=== PATIENT | female | born 1945 | race Caucasian/White ===

== ENCOUNTER → 2019-06-11 09:33 | Outpatient (BNVA) | payer MEDICARE, MEDICAID, SELFPAY | PROVIDERS: Family Provider Family Medicine; PCP Family Medicine; Visit Provider Nurse Practitioner Psychiatric/Mental Health | DX: F33.2 Major depressive disorder, recurrent severe without psychotic features (principal); F41.0 Panic disorder [episodic paroxysmal anxiety]; F41.9 Anxiety disorder, unspecified; F43.21 Adjustment disorder with depressed mood | CPT/HCPCS: 99214 ==

== ENCOUNTER → 2019-07-03 11:34 | Outpatient (BNVA) | payer MEDICARE, MEDICAID, SELFPAY | PROVIDERS: Family Provider Family Medicine; PCP Family Medicine; Visit Provider Family Medicine | DX: F41.8 Other specified anxiety disorders (principal); G47.00 Insomnia, unspecified; F41.9 Anxiety disorder, unspecified; E78.5 Hyperlipidemia, unspecified; E03.9 Hypothyroidism, unspecified; M19.90 Unspecified osteoarthritis, unspecified site; F32.9 Major depressive disorder, single episode, unspecified; I10 Essential (primary) hypertension; E11.65 Type 2 diabetes mellitus with hyperglycemia; E78.2 Mixed hyperlipidemia | CPT/HCPCS: 80053; 80061; 83036; 84443; 85025 ==

== ENCOUNTER → 2019-10-02 11:10 | Outpatient (BNVA) | payer OTHER, SELFPAY | PROVIDERS: Family Provider Family Medicine; PCP Family Medicine; Visit Provider Family Medicine | DX: F32.9 Major depressive disorder, single episode, unspecified (principal); F41.9 Anxiety disorder, unspecified; E11.65 Type 2 diabetes mellitus with hyperglycemia; E78.2 Mixed hyperlipidemia; I10 Essential (primary) hypertension; E03.9 Hypothyroidism, unspecified | CPT/HCPCS: 80053; 80061; 83036; 84443; 85025 ==

== ENCOUNTER 2019-11-04 18:49 | Emergency (ER) | payer MEDICARE, MEDICAID, SELFPAY ==
[2019-11-04 18:54] VITALS: BP 115/88; PULSE 72; RESP 16; TEMP 36.7; O2SAT 94; BMI 37.8
[2019-11-04 18:59] VITALS: BP 126/80; PULSE 72; RESP 16; TEMP 36.9; O2SAT 93
--- NOTE | 2019-11-04 19:00 | W.ED.ANXIETY ---
HPI - Anxiety General: Chief Complaint: Anxiety Stated Complaint: ANXIETY/DEPRESSION Time Seen by Provider: 11/04/19 18:53 Source: patient and EMS Mode of arrival: EMS Limitations: no limitations History of Present Illness: HPI narrative: 74-year-old female brought in by EMS for depression. Patient had called her PCP wanting a refill for her anxiety medicine states that she is crying over the phone as she gets depressed time to time because of her son and her passing away. EMS was called to check on her she is denied suicidality to EMS. She denies being suicidal or homicidal to me and he states that she gets depressed at times and this is been normal for. She states she takes Wellbutrin and it helps her pretty well. She states that they did refill her anxiety medicine today. Associated symptoms: Deny chest pain, chills, fever(s), headache(s), nausea or vomiting Review of Systems Const: Denies: fever(s), chills, body aches or change in appetite Eyes: Denies: blurry vision or eye discomfort ENMT: Denies: throat pain or dental pain Card: Denies: chest pain Resp: Denies: dyspnea GI: Denies: abdominal pain, nausea, vomiting or diarrhea : Denies: dysuria Musc: Denies: neck pain or back pain Skin/Breast: Denies: rash Neuro: Denies: headache(s) Psych: Reports: depression Josh/Lymph: Denies: easy bruising All/Imm: Denies: urticaria PFSH ED PFSH: Medical History Aortic aneurysm Bipolar depression Chronic low back pain Chronic pain Diabetes GERD (gastroesophageal reflux disease) HTN (hypertension) Hyperlipidemia Hypersomnia Hypothyroidism Insomnia Neuropathy Obesity Panic anxiety syndrome Pulmonary embolism Vitamin D deficiency Surgical History H/O colonoscopy 2018 H/O lumpectomy 2001 History of cholecystectomy History of esophagogastroduodenoscopy 2018 Hx of hysterectomy vaginal 1970 Hx of tonsillectomy 1965 Family History Other CAD (coronary artery disease) Cancer Diabetes Stroke Social History Smoking and tobacco status: never smoked Second hand smoke exposure: No Smoking risk assessment/counseling performed?: No Alcohol intake: never Desire information about alcohol rehabilitation?: No Counseling given: No Desire information about substance/drug rehabilitation?: No Counseling given: No Lives independently: Yes Marital status: / Current occupational status: retired Current gender identity: Female Physical Exam Const: COMMON NORMALS: no acute distress, patient oriented x3 and healthy appearing HENMT: COMMON NORMALS: normocephalic and atraumatic HEAD & SCALP: normocephalic and atraumatic Eye: COMMON NORMALS: Equal, round and reactive pupils present and EOMs intact bilaterally PUPIL: Yes Equal, round and reactive pupils present Neck/C-Spine: COMMON NORMALS: full ROM and supple Chest: COMMONS NORMALS: normal inspection of the chest and normal palpation of entire chest wall Resp: COMMON NORMALS: normal respiratory effort, No retractions, No use of accessory muscles and clear to auscultation bilaterally AUSCULTATION: clear to auscultation bilaterally Cardio: COMMON NORMALS: regular rate, regular rhythm and No murmurs present (Cardio) RATE: regular rate RHYTHM: regular rhythm GI: COMMON NORMALS: Normal to inspection, nondistended, normoactive bowel sounds present, Soft to palpation, non-tender and no masses PALPATION: Yes Soft to palpation Extremity: COMMON NORMALS: normal to inspection and full ROM Neuro: COMMON NORMALS: patient oriented x3, moves all extremities and no focal motor deficits Psych: COMMON NORMALS: mental status grossly normal, Normal thought process present and cooperative MOOD & AFFECT: Yes depressed mood THOUGHT PROCESS: Normal thought process present THOUGHT CONTENT: No Suicidality present and No Homicidality present Skin: COMMON NORMALS: no rashes or lesions noted and no wounds GENERAL SKIN EXAM: no rashes or lesions noted Course Vital Signs: Vital signs: Vital Signs Temperature 98.3 F 11/04/19 20:31 Pulse Rate 76 11/04/19 20:31 Respiratory Rate 16 11/04/19 20:31 Blood Pressure 124/82 11/04/19 20:31 Pulse Oximetry 95 11/04/19 20:31 MDM - Anxiety MDM Narrative: Medical decision making narrative: Patient presents here with anxiety along with depression. Patient adamantly denies any suicidality or homicidality. She denied that to EMS as well. Patient given Ativan and she is requesting discharge. She has no reasons to 96-hour hold and is stable for discharge. She is to follow-up with her primary care doctor in 3 to 5 days return to ER if worsening. Discharge Plan Discharge Patient Disposition: Home, Self-Care Clinical Impression: Depression Qualifiers: Depression Type: unspecified Qualified Code(s): F32.9 - Major depressive disorder, single episode, unspecified Condition: Stable Prescriptions: No Action metoprolol tartrate 25 mg tablet 25 mg PO BID RF: 0 hydrochlorothiazide 12.5 mg tablet 12.5 mg PO QAM PRN (Reason: edema) RF: 0 Victoza 3-[place] 0.6 mg/0.1 mL (18 mg/3 mL) pen injector 1.8 mg SUBCUT DAILY 30 Days Qty: 9 RF: 3 celecoxib [Celebrex] 200 mg capsule 200 mg PO DAILY Qty: 30 RF: 3 escitalopram oxalate [Lexapro] 10 mg tablet 10 mg PO DAILY Qty: 30 RF: 2 rosuvastatin [Crestor] 10 mg tablet 10 mg PO ONCE Qty: 30 RF: 3 (DME) Accu-Chek SmartView Test Strip Strip See Rx Instructions .ROUTE .MEDSUPPLY Qty: 100 RF: 6 losartan 25 mg tablet 25 mg PO DAILY Qty: 30 RF: 4 gabapentin 400 mg capsule 400 mg PO TID Qty: 90 RF: 1 esomeprazole magnesium [Nexium 24HR] 20 mg capsule,delayed release(DR/EC) 20 mg PO ONCE Qty: 90 RF: 0 metformin 1,000 mg tablet See Rx Instructions .ROUTE .COMPLEX Qty: 60 RF: 2 amlodipine 5 mg tablet 5 mg PO DAILY Qty: 90 RF: 0 bupropion HCl [Wellbutrin XL] 300 mg tablet extended release 24 hr 300 mg PO QAM Qty: 30 RF: 3 trazodone 100 mg tablet 100 mg PO .QHS Qty: 30 RF: 3 cholecalciferol (vitamin D3) 25 mcg (1,000 unit) tablet 25 mcg PO DAILY Qty: 90 RF: 0 levothyroxine 100 mcg tablet 100 mcg PO DAILY Qty: 90 RF: 0 clonazepam 1 mg tablet 1 mg PO TID Qty: 90 RF: 0 Discharge Orders: Discharge Order (Routine); Ordered 06/15/20 Ordered By: Florencia Briggs Referrals: Kristy Topete MD [Primary Care Provider] - 1-3 days Discharge Diet: Advance as tolerated Discharge Activity: Resume usual activity Patient Instructions: Depression (ED) Coding Level of Care Code ED Weight And Test Bar Clerk for Chg Fwd Exam Comprehensive
[2019-11-04] MEDS: LORazepam 1 mg Tablet PO (19:13)
[2019-11-04 20:31] VITALS: BP 124/82; PULSE 76; RESP 16; TEMP 36.8; O2SAT 95
== END 2019-11-04 20:43 | disposition home or self-care (01) ==
PROVIDERS: Emergency Provider Emergency Medicine; PCP Family Medicine
DX: F32.9 Major depressive disorder, single episode, unspecified (principal); E11.40 Type 2 diabetes mellitus with diabetic neuropathy, unspecified; I10 Essential (primary) hypertension; E78.5 Hyperlipidemia, unspecified; Z79.84 Long term (current) use of oral hypoglycemic drugs
CPT/HCPCS: 12345; 99281; 99283

== ENCOUNTER → 2019-12-03 08:14 | Outpatient (BNVA) | payer MEDICARE, MEDICAID, SELFPAY | PROVIDERS: PCP Family Medicine; Visit Provider Nurse Practitioner Psychiatric/Mental Health | DX: F41.9 Anxiety disorder, unspecified (principal); F41.8 Other specified anxiety disorders; F41.0 Panic disorder [episodic paroxysmal anxiety]; F43.21 Adjustment disorder with depressed mood; F32.9 Major depressive disorder, single episode, unspecified; Z79.899 Other long term (current) drug therapy | CPT/HCPCS: 99213 ==

== ENCOUNTER → 2019-12-06 09:08 | Outpatient (BNVA) | payer MEDICARE, MEDICAID, SELFPAY | PROVIDERS: PCP Family Medicine; Visit Provider Nurse Practitioner Psychiatric/Mental Health | DX: Z79.899 Other long term (current) drug therapy (principal) | CPT/HCPCS: 80053 ==

== ENCOUNTER → 2019-12-31 09:16 | Outpatient (BNVA) | payer MEDICARE, MEDICAID, SELFPAY | PROVIDERS: PCP Family Medicine; Visit Provider Nurse Practitioner Psychiatric/Mental Health | DX: F41.0 Panic disorder [episodic paroxysmal anxiety] (principal); F33.9 Major depressive disorder, recurrent, unspecified | CPT/HCPCS: G0463 ==

== ENCOUNTER → 2020-02-25 08:07 | Outpatient (BNVA) | payer MEDICARE, MEDICAID, SELFPAY | PROVIDERS: PCP Family Medicine; Visit Provider Nurse Practitioner Psychiatric/Mental Health | DX: F41.9 Anxiety disorder, unspecified (principal); F41.8 Other specified anxiety disorders; G47.00 Insomnia, unspecified; F43.21 Adjustment disorder with depressed mood; F41.0 Panic disorder [episodic paroxysmal anxiety]; F32.9 Major depressive disorder, single episode, unspecified | CPT/HCPCS: 99212 ==

== ENCOUNTER → 2020-03-30 07:58 | Outpatient (BNVA) | payer MEDICARE, MEDICAID, SELFPAY | PROVIDERS: PCP Family Medicine; Visit Provider Nurse Practitioner Psychiatric/Mental Health | DX: F41.9 Anxiety disorder, unspecified (principal); F41.8 Other specified anxiety disorders; G47.00 Insomnia, unspecified; F43.21 Adjustment disorder with depressed mood | CPT/HCPCS: G0463 ==

== ENCOUNTER → 2020-05-25 07:58 | Outpatient (BNVA) | payer MEDICARE, MEDICAID, SELFPAY | PROVIDERS: PCP Family Medicine; Visit Provider Nurse Practitioner Psychiatric/Mental Health | DX: F41.8 Other specified anxiety disorders (principal); F43.21 Adjustment disorder with depressed mood; F41.0 Panic disorder [episodic paroxysmal anxiety]; F32.9 Major depressive disorder, single episode, unspecified; F41.1 Generalized anxiety disorder; F43.12 Post-traumatic stress disorder, chronic | CPT/HCPCS: 99212 ==

== ENCOUNTER → 2020-07-15 15:11 | Outpatient (BNVA) | payer MEDICARE, MEDICAID, SELFPAY | PROVIDERS: PCP Family Medicine; Visit Provider Family Medicine | DX: E03.9 Hypothyroidism, unspecified (principal); E11.65 Type 2 diabetes mellitus with hyperglycemia; E78.2 Mixed hyperlipidemia; I10 Essential (primary) hypertension; M25.562 Pain in left knee; M25.511 Pain in right shoulder; M19.90 Unspecified osteoarthritis, unspecified site; G89.29 Other chronic pain; Z68.41 Body mass index [BMI] 40.0-44.9, adult | CPT/HCPCS: 73030; 73562; 80053; 80061; 83036; 84443; 85025 ==

== ENCOUNTER → 2020-08-20 08:37 | Outpatient (BNVA) | payer MEDICARE, MEDICAID, SELFPAY | PROVIDERS: PCP Family Medicine; Visit Provider Nurse Practitioner Psychiatric/Mental Health | DX: F41.8 Other specified anxiety disorders (principal); F43.21 Adjustment disorder with depressed mood; F41.0 Panic disorder [episodic paroxysmal anxiety]; F32.9 Major depressive disorder, single episode, unspecified | CPT/HCPCS: 99213 ==

== ENCOUNTER → 2020-10-20 09:19 | Outpatient (BNVA) | payer MEDICARE, MEDICAID, SELFPAY | PROVIDERS: PCP Family Medicine; Visit Provider Family Medicine | DX: E03.9 Hypothyroidism, unspecified (principal); E11.9 Type 2 diabetes mellitus without complications; E78.2 Mixed hyperlipidemia; I10 Essential (primary) hypertension | CPT/HCPCS: 80053; 80061; 83036; 84443; 85025 ==

== ENCOUNTER → 2020-11-12 07:38 | Outpatient (BNVA) | payer MEDICARE, MEDICAID, SELFPAY | PROVIDERS: PCP Family Medicine; Visit Provider Nurse Practitioner Psychiatric/Mental Health | DX: F41.8 Other specified anxiety disorders (principal); F43.21 Adjustment disorder with depressed mood; F41.0 Panic disorder [episodic paroxysmal anxiety]; F32.9 Major depressive disorder, single episode, unspecified | CPT/HCPCS: 99213 ==

== ENCOUNTER → 2021-02-04 08:32 | Outpatient (BNVA) | payer MEDICARE, MEDICAID, SELFPAY | PROVIDERS: PCP Family Medicine; Visit Provider Nurse Practitioner Psychiatric/Mental Health | DX: F41.8 Other specified anxiety disorders (principal); F43.21 Adjustment disorder with depressed mood; F41.0 Panic disorder [episodic paroxysmal anxiety]; F32.9 Major depressive disorder, single episode, unspecified; I10 Essential (primary) hypertension | CPT/HCPCS: 99213 ==

== ENCOUNTER → 2021-04-29 08:21 | Outpatient (BNVA) | payer MEDICARE, MEDICAID, SELFPAY | PROVIDERS: PCP Family Medicine; Visit Provider Nurse Practitioner Psychiatric/Mental Health | DX: F43.21 Adjustment disorder with depressed mood (principal); F41.8 Other specified anxiety disorders; F41.0 Panic disorder [episodic paroxysmal anxiety]; F32.9 Major depressive disorder, single episode, unspecified | CPT/HCPCS: 99214 ==

== ENCOUNTER → 2021-07-27 11:59 | Outpatient (BNVA) | payer MEDICARE, MEDICAID, SELFPAY | PROVIDERS: PCP Family Medicine; Visit Provider Family Medicine | DX: E03.9 Hypothyroidism, unspecified (principal); E11.65 Type 2 diabetes mellitus with hyperglycemia; E55.9 Vitamin D deficiency, unspecified; E78.2 Mixed hyperlipidemia; I10 Essential (primary) hypertension; E78.5 Hyperlipidemia, unspecified | CPT/HCPCS: 80053; 80061; 82306; 83036; 84443; 85025 ==

== ENCOUNTER → 2021-08-05 11:12 | Outpatient (BNVA) | payer MEDICARE, MEDICAID, SELFPAY | PROVIDERS: PCP Family Medicine; Visit Provider Nurse Practitioner Psychiatric/Mental Health | DX: F43.21 Adjustment disorder with depressed mood (principal); F41.0 Panic disorder [episodic paroxysmal anxiety]; F32.9 Major depressive disorder, single episode, unspecified; F41.8 Other specified anxiety disorders | CPT/HCPCS: 99214 ==

== ENCOUNTER → 2021-09-29 11:11 | Outpatient (BNVA) | payer MEDICARE, MEDICAID, SELFPAY | PROVIDERS: PCP Family Medicine; Visit Provider Family Medicine | DX: M54.16 Radiculopathy, lumbar region (principal); M19.011 Primary osteoarthritis, right shoulder; M17.0 Bilateral primary osteoarthritis of knee; G89.29 Other chronic pain; G62.9 Polyneuropathy, unspecified; E03.9 Hypothyroidism, unspecified; E11.65 Type 2 diabetes mellitus with hyperglycemia; E78.2 Mixed hyperlipidemia; G47.00 Insomnia, unspecified; I71.2 Thoracic aortic aneurysm, without rupture; K21.9 Gastro-esophageal reflux disease without esophagitis; R01.1 Cardiac murmur, unspecified; Z76.89 Persons encountering health services in other specified circumstances | CPT/HCPCS: 80053; 84439; 84443; 85025; 85651 ==

== ENCOUNTER → 2021-10-28 11:16 | Outpatient (BNVA) | payer MEDICARE, MEDICAID, SELFPAY | PROVIDERS: PCP Family Medicine; Visit Provider Nurse Practitioner Psychiatric/Mental Health | DX: F41.0 Panic disorder [episodic paroxysmal anxiety] (principal); F33.1 Major depressive disorder, recurrent, moderate; F41.8 Other specified anxiety disorders | CPT/HCPCS: 99214 ==

== ENCOUNTER → 2022-02-01 11:28 | Outpatient (BNVA) | payer MEDICARE, MEDICAID, SELFPAY | PROVIDERS: PCP Family Medicine; Visit Provider Family Medicine | DX: R51.9 Headache, unspecified (principal); G89.29 Other chronic pain; I10 Essential (primary) hypertension; G62.9 Polyneuropathy, unspecified; R01.1 Cardiac murmur, unspecified; I71.2 Thoracic aortic aneurysm, without rupture; M54.16 Radiculopathy, lumbar region; E78.5 Hyperlipidemia, unspecified; E03.9 Hypothyroidism, unspecified; M17.0 Bilateral primary osteoarthritis of knee | CPT/HCPCS: 80053; 80061; 82306; 82607; 82746; 83036; 84439; 84443; 85025; 85651; 86140 ==

== ENCOUNTER 2022-04-07 14:53 | Outpatient (CLI) | payer MEDICARE, MEDICAID, SELFPAY ==
--- NOTE | 2022-04-07 15:00 | USCV_ITS ---
Mena Farley Age: 77 Gender: F : 1945 Exam Date: 04/07/2022 15:36 Ordering Phys: Xavi Ordonez DO Technologist: YOLY Exam Location: [facility] [place] Indication: MURMUR BP: 122 / 86 HR: 54 Rhythm: Sinus Technical Quality: Adequate MEASUREMENTS (Male / Female) Normal Values 2D ECHO LVOT Diameter 2.0 cm LV Ejection Fraction MOD 2C 70.5 % LV Ejection Fraction 2C AL 72.4 % LA Diameter 3.9 cm LA Width 3.7 cm LA Height 5.4 cm RA Width 3.4 cm RA Height 5.3 cm Aorta at Sinotubular Diameter 2.8 cm IVC Diameter 1.9 cm M-MODE Aortic Annulus Diameter 2.3 cm LA Ao Ratio MM 1.5 MV E Point Septal Separation 0.3 cm DOPPLER AV Peak Velocity 364.0 cm/s LVOT Peak Velocity 88.0 cm/s AV Area Cont Eq vti 0.7 cm squared AV Area Cont Eq pk 0.8 cm squared MV Peak Velocity 97.0 cm/s MV Area PHT 2.4 cm squared Mitral E to A Ratio 0.9 MV E' Velocity 45.0 cm/s Mitral E to MV E' Ratio 13.1 Mitral E to LV E' Lateral Ratio 13.8 Mitral E to LV E' Septal Ratio 12.7 TR Peak Velocity 221.3 cm/s TR Peak Gradient 19.6 mmHg TR Mean Velocity 190.9 cm/s TR Mean Gradient 15.6 mmHg TR Velocity Time Integral 90.9 cm TV Peak E Velocity 41.0 cm/s Right Atrial Pressure 3.0 mmHg Pulmonary Artery Systolic Pressu 22.6 mmHg PV Peak Velocity 90.0 cm/s RV Acceleration Time 0.1 s RV Ejection Time 0.3 s RV AcT/ET 0.4 FINDINGS Left Ventricle Normal left ventricular size and systolic function, EF 70 %. Mild left ventricular hypertrophy. No regional wall motion abnormalities. Grade I/IV diastolic dysfunction (abnormal relaxation filling pattern), normal to mildly elevated filling pressures. Right Ventricle The right ventricle is normal in size and function. Right Atrium The right atrium is normal in size. Left Atrium Mildly increased left atrial size. Mitral Valve No gross abnormalities noted.trace mitral valve regurgitation. Aortic Valve Thickened aortic valve. Moderate aortic valve calcification. Trace aortic valve regurgitation. Severe low gradient aortic valve stenosis, mean gradient 29 mmHg, KISHA 0.66 cm squared. Peak velocity of 3.71 m/s and a peak gradient of 56.5 mmHg.trace to mild aortic valve regurgitation. Tricuspid Valve [id number] tricuspid valve regurgitation. Pulmonic Valve Pulmonic valve not well visualized. Pericardium Normal pericardium without effusion. Aorta Normal aortic annulus size. IVC The inferior vena cava appears normal. CONCLUSIONS Normal left ventricular size and systolic function, EF 70 %. Mild left ventricular hypertrophy. No regional wall motion abnormalities. Grade I/IV diastolic dysfunction (abnormal relaxation filling pattern), normal to mildly elevated filling pressures. Thickened aortic valve. Moderate aortic valve calcification. Trace aortic valve regurgitation. Severe low gradient aortic valve stenosis, mean gradient 29 mmHg, KISHA 0.66 cm squared. Peak velocity of 3.71 m/s and a peak gradient of 56.5 mmHg.trace to mild aortic valve regurgitation. Mildly increased left atrial size. Trace mitral valve regurgitation. [id number] tricuspid valve regurgitation. Estimated pulmonary artery peak systolic pressure of 23 mmHg. There is no pericardial effusion. There are no intracardiac masses. Compared to the study from 12/31/2018, there is worsening of the aortic valve stenosis Dr Courtney Gonzales MD [facility] (Electronically Signed) Final Date: 07 April 2022 22:24 S
== END 2022-04-07 14:54 | disposition home or self-care (01) ==
LOC: RAD 14:53
PROVIDERS: PCP Family Medicine; Visit Provider Family Medicine
DX: R01.1 Cardiac murmur, unspecified (principal); I71.20 Thoracic aortic aneurysm, without rupture, unspecified; I08.3 Combined rheumatic disorders of mitral, aortic and tricuspid valves
CPT/HCPCS: 93306

== ENCOUNTER 2022-04-23 10:00 | Emergency (ER) | payer MEDICARE, MEDICAID, SELFPAY ==
[2022-04-23 10:05] VITALS: BP 106/66; PULSE 67; RESP 18; TEMP 36.4; O2SAT 96
[2022-04-23 11:30] LABS: Basophils % 0.3 %; Eosinophils # 0.1 10^3/uL (0.0-0.8); Eosinophils % 0.5 %; Hematocrit 43.5 % (37.0-47.0); Lymphocytes # 1.9 10^3/uL (0.8-4.8); Lymphocytes % 15.1 %; Mean Corpuscular HGB Conc 32.2 g/dL (30.0-36.0); Mean Corpuscular Hemoglobin 30.4 pg (28.0-34.0); Mean Corpuscular Volume 94.6 fl (81-99); Monocytes # 0.7 10^3/uL (0.2-0.9); Monocytes % 5.9 %; Neutrophils # 9.63 10^3/uL (1.8-7.7); Neutrophils % 77.7 %; Nucleated Red Blood Cells % 0 %; Platelet Count 317 10^3/cmm (130-400); White Blood Count 12.4 10^3/uL (4.0-10.0)
[2022-04-23 11:50] LABS: Alanine Aminotransferase 37 U/L (0-33); Albumin Level 4.1 g/dL (3.5-5.2); Alkaline Phosphatase 94 U/L (35-105); Anion Gap 23.4 (5-19); Aspartate Amino Transferase 16 U/L (0-32); Blood Urea Nitrogen 20 mg/dL (8-23); Calcium 9.2 mg/dL (8.5-10.5); Carbon Dioxide 18 mmol/L (22-29); Chloride 88 mmol/L (98-107); Globulin 2.5 g/dL (1.3-4.6); Glucose 104 mg/dL (65-115); Lipase 25 U/L (13-60); Osmolality Calculated 265 mOsm/kg (285-295); Potassium 3.4 mmol/L (3.5-5.1); Sodium 126 mmol/L (136-145); Total Bilirubin 0.4 mg/dL (0.15-1.2); Total Protein 6.6 g/dL (6.6-8.7)
--- NOTE | 2022-04-23 12:21 | W.ED.ABDPA2 ---
HPI - Abdominal Pain General: Chief Complaint: Abdominal Pain Stated Complaint: can't eat or drink Time Seen by Provider: 04/23/22 12:16 Source: patient Mode of arrival: ambulatory History of Present Illness: 77-year-old female presents emergency room complaining of left lower quadrant abdominal pain that she began 5 days ago she has had a lot of loose stool with it no hematochezia melena hematemesis coffee-ground emesis no dysuria urgency or frequency. She not had this difficulty before it localizes very well to the left lower quadrant. MD elicited complaint: abdominal pain Onset (ago): day(s) (5) Pain Consistency: constant Location: LLQ Severity: moderate Quality: cramping Radiation: none Migration to: no migration Exacerbating factors: nothing Relieving factors: other (Positioning on her right side) Associated Symptoms: Reports bloating, change in bowel habits, change in stool character and diarrhea; Denies belching, chills, coffee ground emesis, constipation, GI cramping, dyspepsia, dysuria, excessive flatus, fever(s), heartburn, hematochezia, hematuria, hematemesis, fecal incontinence, loose stools, melena, nausea, poor appetite, syncope and vomiting Review of Systems Const: Denies: fever(s) or chills Card: Denies: chest pain, palpitations, irregular heart rhythm or syncope Resp: Denies: dyspnea, productive cough or non-productive cough GI: Reports: abdominal pain, diarrhea, bloating, change in bowel habits and change in stool character; Denies: nausea, vomiting, hematemesis, coffee ground emesis, heartburn, constipation, GI cramping, belching, excessive flatus, fecal incontinence, hematochezia or melena : Denies: dysuria or hematuria Skin/Breast: Denies: rash or pruritus PFSH ED PFSH: Medical History Aortic aneurysm Bipolar depression Chronic low back pain Chronic pain Diabetes GERD (gastroesophageal reflux disease) HTN (hypertension) Hyperlipidemia Hypersomnia Hypothyroidism Insomnia Neuropathy Obesity Panic anxiety syndrome Psychiatric care Pulmonary embolism Vitamin D deficiency Surgical History H/O colonoscopy 2018 H/O lumpectomy 2001 History of cholecystectomy History of esophagogastroduodenoscopy 2018 Hx of hysterectomy vaginal 1970 Hx of tonsillectomy 1965 Family History Other CAD (coronary artery disease) Cancer Diabetes Stroke Social History Smoking and tobacco status: never smoked Second hand smoke exposure: No Smoking risk assessment/counseling performed?: No Alcohol intake: never Desire information about alcohol rehabilitation?: No Counseling given: No Desire information about substance/drug rehabilitation?: No Counseling given: No Lives independently: Yes Marital status: / Current occupational status: retired Current gender identity: Female Female Reproductive History: Spontaneous abortions: No Physical Exam Const: GENERAL APPEARANCE: cooperative and comfortable ORIENTATION/CONSCIOUSNESS: Yes awake, Yes oriented to person, Yes oriented to place and Yes oriented to time HENMT: COMMON NORMALS: normocephalic, atraumatic and hearing grossly normal bilaterally HEAD & SCALP: normocephalic and atraumatic Resp: COMMON NORMALS: normal respiratory effort, No retractions, No use of accessory muscles and clear to auscultation bilaterally AUSCULTATION: clear to auscultation bilaterally Cardio: COMMON NORMALS: regular rate, regular rhythm and No murmurs present (Cardio) RATE: regular rate RHYTHM: regular rhythm GI: COMMON NORMALS: No hepatosplenomegaly present AUSCULTATION: Yes normoactive bowel sounds PALPATION: Yes Tenderness to palpation present (GI) Details: LLQ, No Guarding due to palpation present (GI) and Yes No hepatosplenomegaly present Extremity: COMMON NORMALS: normal to inspection, capillary refill normal, no clubbing, cyanosis or edema, no calf tenderness and no pedal edema Neuro: SENSORIUM/ORIENTATION: Yes oriented to person, Yes oriented to place and Yes oriented to time Skin: COMMON NORMALS: no rashes or lesions noted GENERAL SKIN EXAM: no rashes or lesions noted Course Vital Signs: Vital signs: Vital Signs Temperature 97.6 F 04/23/22 10:05 Pulse Rate 67 04/23/22 10:05 Respiratory Rate 15 04/23/22 13:26 Blood Pressure 145/63 04/23/22 13:26 Pulse Oximetry 96 04/23/22 10:05 MDM - Abdominal Pain Medical Decision Making Nonacute abdomen no peritoneal signs. Based on her presentation and her exam with some mild tenderness in the left lower quadrant do think she has diverticulitis we will treat her as such start the Cipro and Flagyl. Ondansetron for nausea vomiting patient was given fluids discharge home and follow-up with primary care. Medical Records I reviewed the patient's medical records. Lab Data I reviewed the patient's lab results. 04/23/22 11:15 04/23/22 11:15 Labs/Radiology: Laboratory Results WBC 12.4 10^3/uL (4.0-10.0) H 04/23/22 11:15 RBC 4.60 10^6/uL (4.1-5.3) 04/23/22 11:15 Hgb 14.0 g/dL (11.5-15.3) 04/23/22 11:15 Hct 43.5 % (37.0-47.0) 04/23/22 11:15 MCV 94.6 fl (81-99) 04/23/22 11:15 MCH 30.4 pg (28.0-34.0) 04/23/22 11:15 MCHC 32.2 g/dL (30.0-36.0) 04/23/22 11:15 RDW 13.0 % (12.1-15.1) 04/23/22 11:15 Plt Count 317 10^3/cmm (130-400) 04/23/22 11:15 MPV 9.0 fL (7.4-10.4) 04/23/22 11:15 Neut % (Auto) 77.7 % 04/23/22 11:15 Lymph % (Auto) 15.1 % 04/23/22 11:15 [place] % (Auto) 5.9 % 04/23/22 11:15 Eos % (Auto) 0.5 % 04/23/22 11:15 Baso % (Auto) 0.3 % 04/23/22 11:15 Neut # (Auto) 9.63 10^3/uL (1.8-7.7) H 04/23/22 11:15 Lymph # (Auto) 1.9 10^3/uL (0.8-4.8) 04/23/22 11:15 [place] # (Auto) 0.7 10^3/uL (0.2-0.9) 04/23/22 11:15 Eos # (Auto) 0.1 10^3/uL (0.0-0.8) 04/23/22 11:15 Baso # (Auto) 0.0 10^3/uL (0.0-0.1) 04/23/22 11:15 Nucleated RBC % (auto) 0 % 04/23/22 11:15 Nucleated RBCs # 0.0 /100WBC 04/23/22 11:15 Sodium 126 mmol/L (136-145) L 04/23/22 11:15 Potassium 3.4 mmol/L (3.5-5.1) L 04/23/22 11:15 Chloride 88 mmol/L (98-107) L 04/23/22 11:15 Carbon Dioxide 18 mmol/L (22-29) L 04/23/22 11:15 Anion Gap 23.4 (5-19) H 04/23/22 11:15 BUN 20 mg/dL (8-23) 04/23/22 11:15 Creatinine 0.7 mg/dL (0.5-0.9) 04/23/22 11:15 GFR Calculation Not Reportable 04/23/22 11:15 Glucose 104 mg/dL (65-115) 04/23/22 11:15 Calculated Osmolality 265 mOsm/kg (285-295) L 04/23/22 11:15 Calcium 9.2 mg/dL (8.5-10.5) 04/23/22 11:15 Total Bilirubin 0.4 mg/dL (0.15-1.2) 04/23/22 11:15 AST 16 U/L (0-32) 04/23/22 11:15 ALT 37 U/L (0-33) H 04/23/22 11:15 Alkaline Phosphatase 94 U/L (35-105) 04/23/22 11:15 Total Protein 6.6 g/dL (6.6-8.7) 04/23/22 11:15 Albumin 4.1 g/dL (3.5-5.2) 04/23/22 11:15 Globulin 2.5 g/dL (1.3-4.6) 04/23/22 11:15 Lipase 25 U/L (13-60) 04/23/22 11:15 Urine Color Yellow (Yellow) 04/23/22 12:17 Urine Appearance Clear (CLEAR) 04/23/22 12:17 Urine pH 5 (5-7) 04/23/22 12:17 Ur Specific [place] 1.025 (1.005-1.030) 04/23/22 12:17 Urine Protein Neg (Negative) 04/23/22 12:17 Urine Glucose (UA) Norm (Normal) 04/23/22 12:17 Urine Ketones 2+ (Negative) H 04/23/22 12:17 Urine Blood Neg (Negative) 04/23/22 12:17 Urine Nitrate Negative (Negative) 04/23/22 12:17 Urine Bilirubin Neg (Negative) 04/23/22 12:17 Urine Urobilinogen Norm mg/dL (Negative) 04/23/22 12:17 Ur Leukocyte Esterase Negative (Negative) 04/23/22 12:17 Discharge Plan Discharge Patient Disposition: Home Clinical Impression: Diverticulitis Condition: Stable Prescriptions: New Cipro 500 mg tablet 500 mg PO BID Qty: 20 0RF metronidazole 500 mg tablet 500 mg PO BID 10 Days Qty: 20 0RF ondansetron HCl 4 mg tablet 4 mg PO Q6H PRN (Reason: nausea and vomiting) Qty: 20 0RF No Action Healthy Eyes 1,000 unit-200 mg-60 unit-2 mg tablet 1 tab PO DAILY Rx Instructions: administer after a meal krill oil 500 mg capsule 500 mg PO DAILY Adult 50 Plus Probiotic 4 billion cell capsule 4,000 mmu cells PO BID Rx Instructions: administer with a meal amlodipine 5 mg tablet 5 mg PO DAILY Qty: 90 2RF baclofen 10 mg tablet 20 mg PO DAILY 90 Days Qty: 180 2RF bupropion HCl [Wellbutrin XL] 300 mg tablet extended release 24 hr 300 mg PO QAM Qty: 90 2RF Rx Instructions: take one tablet by mouth every morning cholecalciferol (vitamin D3) 25 mcg (1,000 unit) tablet 25 mcg PO DAILY Qty: 90 2RF esomeprazole magnesium 40 mg capsule,delayed release(DR/EC) 40 mg PO DAILY 90 Days Qty: 90 2RF levothyroxine 125 mcg tablet 125 mcg PO DAILY 90 Days Qty: 90 2RF losartan 25 mg tablet 25 mg PO DAILY Qty: 90 2RF metformin 1,000 mg tablet 1,000 mg PO BID Qty: 180 2RF metoprolol tartrate 25 mg tablet 25 mg PO BID Qty: 180 2RF rosuvastatin 10 mg tablet 10 mg PO DAILY Qty: 90 1RF trazodone 300 mg tablet 300 mg PO DAILY PRN (Reason: insomnia) Qty: 90 2RF Rx Instructions: Half to 1 tablet daily at bedtime if needed for insomnia gabapentin 100 mg capsule 100 mg PO QID 90 Days Qty: 360 2RF Rx Instructions: take with 800 mg tablets to = 900 mg 4 times daily escitalopram oxalate 20 mg tablet 20 mg PO QAM Qty: 90 0RF Rx Instructions: Take one tablet by mouth every morning clonazepam 1 mg tablet 1 mg PO TID Qty: 75 2RF Rx Instructions: Take 1 tablet twice or three times daily, if needed for anxiety/panic symptoms (DME) Accu-Chek SmartView Test Strip Strip See Rx Instructions .ROUTE .MEDSUPPLY Qty: 100 6RF Rx Instructions: to test 1 time daily hydrocodone-acetaminophen 10-325 mg tablet 1 tab PO BID 30 Days Qty: 60 0RF gabapentin 800 mg tablet See Rx Instructions .ROUTE .COMPLEX Qty: 90 0RF Dose Instruction: TAKE ONE TABLET BY MOUTH THREE TIMES DAILY. Rx Instructions: TAKE ONE TABLET BY MOUTH THREE TIMES DAILY. Victoza 3-[place]ilton 0.6 mg/0.1 mL (18 mg/3 mL) pen injector See Rx Instructions .ROUTE .COMPLEX Qty: 9 3RF Dose Instruction: inject 1.8 MG (0.3 ml) subcutaneously daily Rx Instructions: inject 1.8 MG (0.3 ml) subcutaneously daily pen needle, diabetic [TRUEplus Pen Needle] 32 gauge x 5/32 needle See Rx Instructions .ROUTE .COMPLEX Qty: 100 3RF Dose Instruction: use as directed with victoza. Rx Instructions: use as directed with victoza. Discharge Orders: Discharge ED (Routine); Ordered 04/23/22 Ordered By: Madhu Marcano Referrals: Xavi Ordonez DO [Primary Care Provider] - Discharge Diet: Clear Liquid Discharge Activity: Resume usual activity Patient Instructions: Opioid Safety, Pain Management Activity Restrictions/Additional Instructions: You were seen today for abdominal pain your exam indicates diverticulitis. We will start you on metronidazole and ciprofloxacin 1 pill of each twice daily for 10 days clear liquid diet for 24 to 48 hours then begin to advance as you are able. You can use the ondansetron as needed for nausea and vomiting symptoms worsen or change follow-up with your primary care doctor. Coding Level of Care Code ED Student Life Coordinator for Domig Fwd Exam Detailed
[2022-04-23 12:27] LABS: Add Urine Microscopic? NO; Charge for UA Resulting for Rev
[2022-04-23 12:31] LABS: Bilirubin Urine Neg (Negative); Blood Urine Neg (Negative); Glucose Urine UA Norm (Normal); Ketones Urine 2+ (Negative); Leukocyte Esterase Urine Negative (Negative); Nitrate Urine Negative (Negative); Protein Urine Neg (Negative); Specific Gravity, Urine 1.025 (1.005-1.030); Urine Appearance Clear (CLEAR); Urine Color Yellow (Yellow); Urobilinogen Urine Norm (Negative); pH Urine 5 (5-7)
[2022-04-23 13:26] VITALS: BP 145/63; RESP 15
[2022-04-23] MEDS: sodium chloride 0.9% 1,000 ML 999 ML IV (14:00)
[2022-04-23 15:55] VITALS: RESP 16; O2SAT 98
== END 2022-04-23 15:56 | disposition home or self-care (01) ==
PROVIDERS: Emergency Medicine; Emergency Provider Family Medicine; PCP Family Medicine
DX: K57.92 Diverticulitis of intestine, part unspecified, without perforation or abscess without bleeding (principal); Z79.84 Long term (current) use of oral hypoglycemic drugs; E11.9 Type 2 diabetes mellitus without complications; I10 Essential (primary) hypertension; E78.5 Hyperlipidemia, unspecified
CPT/HCPCS: 36415; 80053; 81003; 83690; 85025; 96360; 96361; 99284; J7030

== ENCOUNTER → 2022-05-05 09:42 | Outpatient (BNVA) | payer MEDICARE, MEDICAID, SELFPAY | PROVIDERS: PCP Family Medicine; Visit Provider Internal Medicine Cardiovascular Disease | DX: I35.0 Nonrheumatic aortic (valve) stenosis (principal); I10 Essential (primary) hypertension; R94.31 Abnormal electrocardiogram [ECG] [EKG]; R19.7 Diarrhea, unspecified | CPT/HCPCS: 87177; 87209; 87493; 87506; 93005; 99204 ==

== ENCOUNTER 2022-05-06 16:19 | Emergency (ER) | payer MEDICARE, MEDICAID, SELFPAY ==
[2022-05-06] VITALS (51 sets, daily range): BP systolic 79–170; BP diastolic 41–86; PULSE 59–95; RESP 0–33; TEMP 36.4; O2SAT 87–99; BMI 38.9
--- NOTE | 2022-05-06 16:52 | CTR_ITS ---
PROCEDURE INFORMATION: Exam: CT Abdomen And Pelvis With Contrast Exam date and time: 05/06/2022 5:11 PM Age: 77 years old Clinical indication: Abdominal pain; Additional info: Llq pain TECHNIQUE: Imaging protocol: Computed tomography of the abdomen and pelvis with contrast. Radiation optimization: All CT scans at this facility use at least one of these dose optimization techniques: automated exposure control; mA and/or kV adjustment per patient size (includes targeted exams where dose is matched to clinical indication); or iterative reconstruction. Contrast material: OMNIPAQUE 350; Contrast volume: 100 ml; Contrast route: INTRAVENOUS (IV); COMPARISON: CT abdomen pelvis w con* [id number] 10/12/2018 3:37 PM RADIATION DOSE METRICS: Total DLP (mGy-cm): 995.36 FINDINGS: Lungs: Lung bases are clear. Scattered granulomatous calcifications within the spleen, stable. No splenomegaly. Heart: Mild cardiomegaly Diaphragm: Small hiatal hernia. Liver: Mild fatty infiltration throughout the liver. Small enhancing liver lesion along the liver dome likely representing flash filling of a small hemangioma. Gallbladder and bile ducts: Gallbladder has been removed. Bile ducts are not appreciably dilated. Pancreas: Normal. No ductal dilation. Spleen: See Lungs finding. Adrenal glands: Normal. No mass. Kidneys and ureters: Normal. No hydronephrosis. Stomach and bowel: Mild-moderate degree of retained stool throughout the colon which may reflect some degree of constipation. Appendix: No evidence of appendicitis. Intraperitoneal space: Unremarkable. No free air. No significant fluid collection. Vasculature: Unremarkable. No abdominal aortic aneurysm. Lymph nodes: Unremarkable. No enlarged lymph nodes. Urinary bladder: Unremarkable as visualized. Reproductive: Uterus has been removed. Bones/joints: Mild degenerative spondylolisthesis L5-S1, stable. Moderate degenerative changes of the pubic symphysis. Soft tissues: Stable fat containing right abdominal wall hernia located the few cm above the umbilicus, unchanged.. CT/CT abdomen pelvis w con* [id number] IMPRESSION: 1. No acute findings within the abdomen or pelvis. 2. Stable fat containing epigastric hernia. 3. Additional findings as above.
--- NOTE | 2022-05-06 16:54 | W.ED.NAVMDI ---
Documented by User: Jarrod Johansen MD 05/06/22 18:21 HPI - Nausea/Vomiting/Diarrhea General: Chief complaint: Nausea/Vomiting/Diarrhea Stated complaint: Nausea/Vomiting Time Seen by Provider: 05/06/22 16:27 History of Present Illness: 77-year-old female presents with 4 weeks of abdominal pain, nausea, vomiting, diarrhea. It started off minor and gradually got worse. She was diagnosed empirically based on history and physical exam with diverticulitis and put on ciprofloxacin and Flagyl starting on April 23 and took it for 10 days. She reports she never did get over the presumed diverticulitis and continues to have yellowish-green and sometimes mucousy stools. She has no history of C. difficile and does not have any specific risk factors for traveler's diarrhea. She denies any black or bloody stools, fever, cough, shortness of breath. She does endorse generalized weakness. Associated nausea: Yes Associated symtoms: Reports nausea; Denies altered mental status, change in vision, chest pain, dysuria, headache(s) or syncope Review of Systems General: Reports: 10 or more systems reviewed and unremarkable except in HPI and below Const: Denies: fever(s), chills or body aches Eyes: Denies: change in vision ENMT: Denies: throat pain Card: Denies: chest pain, edema or syncope Resp: Denies: dyspnea or productive cough GI: Reports: abdominal pain, nausea, vomiting, diarrhea, GI cramping, change in bowel habits and change in stool character; Denies: hematemesis, coffee ground emesis or hematochezia : Denies: flank pain, dysuria or urinary frequency Musc: Denies: neck pain, back pain, extremity pain or extremity swelling Skin/Breast: Denies: rash or erythema Neuro: Denies: headache(s), numbness in extremities, lack of coordination or difficulty walking PFSH ED PFSH: Medical History Aortic aneurysm Bipolar depression Chronic low back pain Chronic pain Diabetes GERD (gastroesophageal reflux disease) HTN (hypertension) Hyperlipidemia Hypersomnia Hypothyroidism Insomnia Neuropathy Obesity Panic anxiety syndrome Psychiatric care Pulmonary embolism Vitamin D deficiency Surgical History H/O colonoscopy 2018 H/O lumpectomy 2001 History of cholecystectomy History of esophagogastroduodenoscopy 2018 Hx of hysterectomy vaginal 1970 Hx of tonsillectomy 1965 Family History Son Stroke X2 sons (one ) Mother Stroke Sister Hx of CABG Other CAD (coronary artery disease) Cancer Diabetes Hypertension Social History Smoking and tobacco status: former smoker Second hand smoke exposure: No Smoking risk assessment/counseling performed?: No Alcohol intake: never Desire information about alcohol rehabilitation?: No Counseling given: No Desire information about substance/drug rehabilitation?: No Counseling given: No Lives independently: Yes Marital status: / Current occupational status: retired Current gender identity: Female Female Reproductive History: Spontaneous abortions: No Physical Exam Const: COMMON NORMALS: no limitations, alert and well nourished EXAM LIMITATIONS: no altered mental status HENMT: COMMON NORMALS: normocephalic, atraumatic and external ears normal HEAD & SCALP: normocephalic and atraumatic EXTERNAL EAR: Yes external ears normal MOUTH: no muffled voice Eye: COMMON NORMALS: EOMs intact bilaterally, conjunctivae normal and no scleral icterus CONJUNCTIVA: Yes conjunctivae normal Neck/C-Spine: COMMON NORMALS: no JVD GENERAL: Yes normal visual inspection and Yes trachea midline Resp: COMMON NORMALS: No use of accessory muscles EFFORT & INSPECTION: Yes able to speak in complete sentences and Yes tachypneic AUSCULTATION: rales (Bases) Cardio: COMMON NORMALS: no JVD, regular rate and regular rhythm RATE: regular rate RHYTHM: regular rhythm GI: OTHER: Patient appears to have rectus diastases. She has tenderness in the left mid abdomen primarily with some left lower quadrant tenderness. No rebound is present at this time. She does have some guarding. The abdomen is soft, mild distention with obesity. Extremity: COMMON NORMALS: normal to inspection Neuro: COMMON NORMALS: moves all extremities, no focal motor deficits and no sensory deficits noted SENSORIUM/ORIENTATION: Yes alert SPEECH: speech normal Psych: COMMON NORMALS: mental status grossly normal, Normal thought process present, cooperative, normal affect and speech normal SPEECH: Yes normal speech THOUGHT PROCESS: Normal thought process present Skin: COMMON NORMALS: no rashes or lesions noted, turgor normal and no jaundice GENERAL SKIN EXAM: no rashes or lesions noted and turgor normal Course Vital Signs: Vital signs: Vital Signs Temperature 97.5 F L 05/06/22 16:22 Pulse Rate 61 05/06/22 18:50 Respiratory Rate 0 L 05/06/22 18:50 Blood Pressure 124/67 05/06/22 18:50 Pulse Oximetry 89 L 05/06/22 18:50 Oxygen Delivery Me thod 05/06/22 16:22 MDM - Nausea/Vomiting/Diarrhea Medical Decision Making Left mid abdominal pain progressive for 1 month. Diverticulitis or colitis is the most common cause of this. However, CT scan needs to be obtained at this time to look for other causes such as perforation or abscess, mesenteric ischemia, diffuse colitis that would be more consistent with inflammatory process than infectious, etc. one month of n/v/d CT abd/pelv w/ contrast today is neg c diff and stool cultures being obtained lytes being corrected IVF UA pending WBC normal Lab Data 05/06/22 17:01 05/06/22 17:01 Radiology Impressions Abdomen/Pelvis CT 05/06/22 16:52 IMPRESSION: 1. No acute findings within the abdomen or pelvis. 2. Stable fat containing epigastric hernia. 3. Additional findings as above. Laboratory Results WBC 7.6 10^3/uL (4.0-10.0) 05/06/22 17:01 RBC 3.95 10^6/uL (4.1-5.3) L 05/06/22 17:01 Hgb 12.0 g/dL (11.5-15.3) 05/06/22 17:01 Hct 35.3 % (37.0-47.0) L 05/06/22 17:01 MCV 89.4 fl (81-99) 05/06/22 17:01 MCH 30.4 pg (28.0-34.0) 05/06/22 17:01 MCHC 34.0 g/dL (30.0-36.0) 05/06/22 17:01 RDW 13.1 % (12.1-15.1) 05/06/22 17:01 Plt Count 330 10^3/cmm (130-400) 05/06/22 17:01 MPV 8.5 fL (7.4-10.4) 05/06/22 17:01 Neut % (Auto) 62.0 % 05/06/22 17:01 Lymph % (Auto) 29.6 % 05/06/22 17:01 [place] % (Auto) 6.5 % 05/06/22 17:01 Eos % (Auto) 0.8 % 05/06/22 17:01 Baso % (Auto) 0.8 % 05/06/22 17:01 Neut # (Auto) 4.69 10^3/uL (1.8-7.7) 05/06/22 17:01 Lymph # (Auto) 2.2 10^3/uL (0.8-4.8) 05/06/22 17:01 [place] # (Auto) 0.5 10^3/uL (0.2-0.9) 05/06/22 17:01 Eos # (Auto) 0.1 10^3/uL (0.0-0.8) 05/06/22 17:01 Baso # (Auto) 0.1 10^3/uL (0.0-0.1) 05/06/22 17:01 Nucleated RBC % (auto) 0 % 05/06/22 17:01 Nucleated RBCs # 0.0 /100WBC 05/06/22 17:01 Sodium 136 mmol/L (136-145) 05/06/22 17:01 Potassium 2.9 mmol/L (3.5-5.1) L 05/06/22 19:37 Chloride 96 mmol/L (98-107) L 05/06/22 17:01 Carbon Dioxide 25 mmol/L (22-29) 05/06/22 17:01 Anion Gap 17.6 (5-19) 05/06/22 17:01 BUN 7 mg/dL (8-23) L 05/06/22 17:01 Creatinine 0.6 mg/dL (0.5-0.9) 05/06/22 17:01 GFR Calculation Not Reportable 05/06/22 17:01 Glucose 83 mg/dL (65-115) 05/06/22 17:01 Calculated Osmolality 279 mOsm/kg (285-295) L 05/06/22 17:01 Calcium 7.8 mg/dL (8.5-10.5) L 05/06/22 17:01 Magnesium 1.2 mg/dL (1.7-2.3) L 05/06/22 17:01 Total Bilirubin 0.3 mg/dL (0.15-1.2) 05/06/22 17:01 AST 12 U/L (0-32) 05/06/22 17:01 ALT 11 U/L (0-33) 05/06/22 17:01 Alkaline Phosphatase 49 U/L (35-105) 05/06/22 17:01 Total Protein 5.4 g/dL (6.6-8.7) L 05/06/22 17:01 Albumin 3.5 g/dL (3.5-5.2) 05/06/22 17:01 Globulin 1.9 g/dL (1.3-4.6) 05/06/22 17:01 Urine Color Yellow (Yellow) 05/06/22 17:51 Urine Appearance Hazy (CLEAR) A 05/06/22 17:51 Urine pH 5 (5-7) 05/06/22 17:51 Ur Specific [place] 1.005 (1.005-1.030) 05/06/22 17:51 Urine Protein Neg (Negative) 05/06/22 17:51 Urine Glucose (UA) Norm (Normal) 05/06/22 17:51 Urine Ketones 3+ (Negative) H 05/06/22 17:51 Urine Blood Neg (Negative) 05/06/22 17:51 Urine Nitrate Negative (Negative) 05/06/22 17:51 Urine Bilirubin Neg (Negative) 05/06/22 17:51 Urine Urobilinogen Neg mg/dL (Negative) 05/06/22 17:51 Ur Leukocyte Esterase Negative (Negative) 05/06/22 17:51 Discharge Plan Discharge Patient Disposition: Home Clinical Impression: Abdominal pain, vomiting, and diarrhea Condition: Stable Prescriptions: New ondansetron HCl 4 mg tablet 4 mg PO Q8H PRN (Reason: nausea and vomiting) 5 Days Qty: 14 0RF Anti-Diarrheal (loperamide) 2 mg capsule 2 mg PO Q4H PRN (Reason: loose stool) Qty: 10 0RF Rx Instructions: administer after each loose stool until symptoms controlled; do not exceed 8 mg per 24 hrs potassium chloride 20 mEq tablet extended release 20 meq PO BID 7 Days Qty: 14 0RF magnesium 250 mg tablet 250 mg PO BID 7 Days Qty: 14 0RF No Action krill oil 500 mg capsule 500 mg PO DAILY amlodipine 5 mg tablet 5 mg PO DAILY Qty: 90 2RF baclofen 10 mg tablet 20 mg PO DAILY 90 Days Qty: 180 2RF bupropion HCl [Wellbutrin XL] 300 mg tablet extended release 24 hr 300 mg PO QAM Qty: 90 2RF Rx Instructions: take one tablet by mouth every morning cholecalciferol (vitamin D3) 25 mcg (1,000 unit) tablet 25 mcg PO DAILY Qty: 90 2RF esomeprazole magnesium 40 mg capsule,delayed release(DR/EC) 40 mg PO DAILY 90 Days Qty: 90 2RF levothyroxine 125 mcg tablet 125 mcg PO DAILY 90 Days Qty: 90 2RF losartan 25 mg tablet 25 mg PO DAILY Qty: 90 2RF metformin 1,000 mg tablet 1,000 mg PO BID Qty: 180 2RF metoprolol tartrate 25 mg tablet 25 mg PO BID Qty: 180 2RF rosuvastatin 10 mg tablet 10 mg PO DAILY Qty: 90 1RF trazodone 300 mg tablet 300 mg PO DAILY PRN (Reason: insomnia) Qty: 90 2RF Rx Instructions: Half to 1 tablet daily at bedtime if needed for insomnia gabapentin 100 mg capsule 100 mg PO QID 90 Days Qty: 360 2RF Rx Instructions: take with 800 mg tablets to = 900 mg 4 times daily escitalopram oxalate 20 mg tablet 20 mg PO QAM Qty: 90 0RF Rx Instructions: Take one tablet by mouth every morning clonazepam 1 mg tablet 1 mg PO TID Qty: 75 2RF Rx Instructions: Take 1 tablet twice or three times daily, if needed for anxiety/panic symptoms acetaminophen [Tylenol] 325 mg tablet 325 mg PO QID PRN zinc acetate 50 mg (zinc) capsule 50 mg PO DAILY hydrocodone-acetaminophen 10-325 mg tablet 1 tab PO BID PRN (Reason: pain) (DME) Accu-Chek SmartView Test Strip Strip See Rx Instructions .ROUTE .MEDSUPPLY Qty: 100 6RF Rx Instructions: to test 1 time daily gabapentin 800 mg tablet See Rx Instructions .ROUTE .COMPLEX Qty: 90 0RF Dose Instruction: TAKE ONE TABLET BY MOUTH THREE TIMES DAILY. Rx Instructions: TAKE ONE TABLET BY MOUTH THREE TIMES DAILY. Victoza 3-[place] 0.6 mg/0.1 mL (18 mg/3 mL) pen injector See Rx Instructions .ROUTE .COMPLEX Qty: 9 3RF Dose Instruction: inject 1.8 MG (0.3 ml) subcutaneously daily Rx Instructions: inject 1.8 MG (0.3 ml) subcutaneously daily pen needle, diabetic [TRUEplus Pen Needle] 32 gauge x 5/32 needle See Rx Instructions .ROUTE .COMPLEX Qty: 100 3RF Dose Instruction: use as directed with victoza. Rx Instructions: use as directed with victoza. Discharge Orders: Discharge ED (Routine); Ordered 05/06/22 Ordered By: Florencia Briggs Referrals: Xavi Ordonez DO [Primary Care Provider] - 1-3 days Discharge Diet: Advance as tolerated Discharge Activity: Resume usual activity Patient Instructions: Abdominal Pain (ED), Opioid Safety, Pain Management Coding Level of Care Code ED Maintainer Operator for Chg Fwd Exam Comprehensive Documented by User: Florencia Briggs MD 05/06/22 20:18 HPI - Nausea/Vomiting/Diarrhea General: Chief complaint: Nausea/Vomiting/Diarrhea Stated complaint: Nausea/Vomiting Time Seen by Provider: 05/06/22 16:27 PFSH ED PFSH: Medical History Aortic aneurysm Bipolar depression Chronic low back pain Chronic pain Diabetes GERD (gastroesophageal reflux disease) HTN (hypertension) Hyperlipidemia Hypersomnia Hypothyroidism Insomnia Neuropathy Obesity Panic anxiety syndrome Psychiatric care Pulmonary embolism Vitamin D deficiency Surgical History H/O colonoscopy 2018 H/O lumpectomy 2000 History of cholecystectomy History of esophagogastroduodenoscopy 2018 Hx of hysterectomy vaginal 1970 Hx of tonsillectomy 1965 Family History Son Stroke X2 sons (one ) Mother Stroke Sister Hx of CABG Other CAD (coronary artery disease) Cancer Diabetes Hypertension Social History Smoking and tobacco status: former smoker Second hand smoke exposure: No Smoking risk assessment/counseling performed?: No Alcohol intake: never Desire information about alcohol rehabilitation?: No Counseling given: No Desire information about substance/drug rehabilitation?: No Counseling given: No Lives independently: Yes Marital status: / Current occupational status: retired Current gender identity: Female Course Vital Signs: Vital signs: Vital Signs Temperature 97.5 F L 05/06/22 16:22 Pulse Rate 61 05/06/22 18:50 Respiratory Rate 0 L 05/06/22 18:50 Blood Pressure 124/67 05/06/22 18:50 Pulse Oximetry 89 L 05/06/22 18:50 Oxygen Delivery Me thod 05/06/22 16:22 MDM - Nausea/Vomiting/Diarrhea Medical Decision Making Left mid abdominal pain progressive for 1 month. Diverticulitis or colitis is the most common cause of this. However, CT scan needs to be obtained at this time to look for other causes such as perforation or abscess, mesenteric ischemia, diffuse colitis that would be more consistent with inflammatory process than infectious, etc. one month of n/v/d CT abd/pelv w/ contrast today is neg c diff and stool cultures being obtained lytes being corrected IVF UA pending WBC normal To patient over from other physician patient potassium here is improving she feels improved she stable for discharge. Lab Data 05/06/22 17:01 05/06/22 17:01 Radiology Impressions Abdomen/Pelvis CT 05/06/22 16:52 IMPRESSION: 1. No acute findings within the abdomen or pelvis. 2. Stable fat containing epigastric hernia. 3. Additional findings as above. Laboratory Results WBC 7.6 10^3/uL (4.0-10.0) 05/06/22 17:01 RBC 3.95 10^6/uL (4.1-5.3) L 05/06/22 17:01 Hgb 12.0 g/dL (11.5-15.3) 05/06/22 17:01 Hct 35.3 % (37.0-47.0) L 05/06/22 17:01 MCV 89.4 fl (81-99) 05/06/22 17:01 MCH 30.4 pg (28.0-34.0) 05/06/22 17:01 MCHC 34.0 g/dL (30.0-36.0) 05/06/22 17:01 RDW 13.1 % (12.1-15.1) 05/06/22 17:01 Plt Count 330 10^3/cmm (130-400) 05/06/22 17:01 MPV 8.5 fL (7.4-10.4) 05/06/22 17:01 Neut % (Auto) 62.0 % 05/06/22 17:01 Lymph % (Auto) 29.6 % 05/06/22 17:01 [place] % (Auto) 6.5 % 05/06/22 17:01 Eos % (Auto) 0.8 % 05/06/22 17:01 Baso % (Auto) 0.8 % 05/06/22 17:01 Neut # (Auto) 4.69 10^3/uL (1.8-7.7) 05/06/22 17:01 Lymph # (Auto) 2.2 10^3/uL (0.8-4.8) 05/06/22 17:01 [place] # (Auto) 0.5 10^3/uL (0.2-0.9) 05/06/22 17:01 Eos # (Auto) 0.1 10^3/uL (0.0-0.8) 05/06/22 17:01 Baso # (Auto) 0.1 10^3/uL (0.0-0.1) 05/06/22 17:01 Nucleated RBC % (auto) 0 % 05/06/22 17:01 Nucleated RBCs # 0.0 /100WBC 05/06/22 17:01 Sodium 136 mmol/L (136-145) 05/06/22 17:01 Potassium 2.9 mmol/L (3.5-5.1) L 05/06/22 19:37 Chloride 96 mmol/L (98-107) L 05/06/22 17:01 Carbon Dioxide 25 mmol/L (22-29) 05/06/22 17:01 Anion Gap 17.6 (5-19) 05/06/22 17:01 BUN 7 mg/dL (8-23) L 05/06/22 17:01 Creatinine 0.6 mg/dL (0.5-0.9) 05/06/22 17:01 GFR Calculation Not Reportable 05/06/22 17:01 Glucose 83 mg/dL (65-115) 05/06/22 17:01 Calculated Osmolality 279 mOsm/kg (285-295) L 05/06/22 17:01 Calcium 7.8 mg/dL (8.5-10.5) L 05/06/22 17:01 Magnesium 1.2 mg/dL (1.7-2.3) L 05/06/22 17:01 Total Bilirubin 0.3 mg/dL (0.15-1.2) 05/06/22 17:01 AST 12 U/L (0-32) 05/06/22 17:01 ALT 11 U/L (0-33) 05/06/22 17:01 Alkaline Phosphatase 49 U/L (35-105) 05/06/22 17:01 Total Protein 5.4 g/dL (6.6-8.7) L 05/06/22 17:01 Albumin 3.5 g/dL (3.5-5.2) 05/06/22 17:01 Globulin 1.9 g/dL (1.3-4.6) 05/06/22 17:01 Urine Color Yellow (Yellow) 05/06/22 17:51 Urine Appearance Hazy (CLEAR) A 05/06/22 17:51 Urine pH 5 (5-7) 05/06/22 17:51 Ur Specific [place] 1.005 (1.005-1.030) 05/06/22 17:51 Urine Protein Neg (Negative) 05/06/22 17:51 Urine Glucose (UA) Norm (Normal) 05/06/22 17:51 Urine Ketones 3+ (Negative) H 05/06/22 17:51 Urine Blood Neg (Negative) 05/06/22 17:51 Urine Nitrate Negative (Negative) 05/06/22 17:51 Urine Bilirubin Neg (Negative) 05/06/22 17:51 Urine Urobilinogen Neg mg/dL (Negative) 05/06/22 17:51 Ur Leukocyte Esterase Negative (Negative) 05/06/22 17:51 Discharge Plan Discharge Patient Disposition: Home Clinical Impression: Abdominal pain, vomiting, and diarrhea Condition: Stable Prescriptions: New ondansetron HCl 4 mg tablet 4 mg PO Q8H PRN (Reason: nausea and vomiting) 5 Days Qty: 14 0RF Anti-Diarrheal (loperamide) 2 mg capsule 2 mg PO Q4H PRN (Reason: loose stool) Qty: 10 0RF Rx Instructions: administer after each loose stool until symptoms controlled; do not exceed 8 mg per 24 hrs potassium chloride 20 mEq tablet extended release 20 meq PO BID 7 Days Qty: 14 0RF magnesium 250 mg tablet 250 mg PO BID 7 Days Qty: 14 0RF No Action krill oil 500 mg capsule 500 mg PO DAILY amlodipine 5 mg tablet 5 mg PO DAILY Qty: 90 2RF baclofen 10 mg tablet 20 mg PO DAILY 90 Days Qty: 180 2RF bupropion HCl [Wellbutrin XL] 300 mg tablet extended release 24 hr 300 mg PO QAM Qty: 90 2RF Rx Instructions: take one tablet by mouth every morning cholecalciferol (vitamin D3) 25 mcg (1,000 unit) tablet 25 mcg PO DAILY Qty: 90 2RF esomeprazole magnesium 40 mg capsule,delayed release(DR/EC) 40 mg PO DAILY 90 Days Qty: 90 2RF levothyroxine 125 mcg tablet 125 mcg PO DAILY 90 Days Qty: 90 2RF losartan 25 mg tablet 25 mg PO DAILY Qty: 90 2RF metformin 1,000 mg tablet 1,000 mg PO BID Qty: 180 2RF metoprolol tartrate 25 mg tablet 25 mg PO BID Qty: 180 2RF rosuvastatin 10 mg tablet 10 mg PO DAILY Qty: 90 1RF trazodone 300 mg tablet 300 mg PO DAILY PRN (Reason: insomnia) Qty: 90 2RF Rx Instructions: Half to 1 tablet daily at bedtime if needed for insomnia gabapentin 100 mg capsule 100 mg PO QID 90 Days Qty: 360 2RF Rx Instructions: take with 800 mg tablets to = 900 mg 4 times daily escitalopram oxalate 20 mg tablet 20 mg PO QAM Qty: 90 0RF Rx Instructions: Take one tablet by mouth every morning clonazepam 1 mg tablet 1 mg PO TID Qty: 75 2RF Rx Instructions: Take 1 tablet twice or three times daily, if needed for anxiety/panic symptoms acetaminophen [Tylenol] 325 mg tablet 325 mg PO QID PRN zinc acetate 50 mg (zinc) capsule 50 mg PO DAILY hydrocodone-acetaminophen 10-325 mg tablet 1 tab PO BID PRN (Reason: pain) (DME) Accu-Chek SmartView Test Strip Strip See Rx Instructions .ROUTE .MEDSUPPLY Qty: 100 6RF Rx Instructions: to test 1 time daily gabapentin 800 mg tablet See Rx Instructions .ROUTE .COMPLEX Qty: 90 0RF Dose Instruction: TAKE ONE TABLET BY MOUTH THREE TIMES DAILY. Rx Instructions: TAKE ONE TABLET BY MOUTH THREE TIMES DAILY. Victoza 3-[place] 0.6 mg/0.1 mL (18 mg/3 mL) pen injector See Rx Instructions .ROUTE .COMPLEX Qty: 9 3RF Dose Instruction: inject 1.8 MG (0.3 ml) subcutaneously daily Rx Instructions: inject 1.8 MG (0.3 ml) subcutaneously daily pen needle, diabetic [TRUEplus Pen Needle] 32 gauge x 5/32 needle See Rx Instructions .ROUTE .COMPLEX Qty: 100 3RF Dose Instruction: use as directed with victoza. Rx Instructions: use as directed with victoza. Discharge Orders: Discharge ED (Routine); Ordered 05/06/22 Ordered By: Florencia Briggs Referrals: Xavi Ordonez DO [Primary Care Provider] - 1-3 days Discharge Diet: Advance as tolerated Discharge Activity: Resume usual activity Patient Instructions: Abdominal Pain (ED), Opioid Safety, Pain Management Coding Level of Care Code ED Maintainer Operator for [place] Fwd Exam Comprehensive
[2022-05-06 17:14] LABS: Basophils # 0.1 10^3/uL (0.0-0.1); Basophils % 0.8 %; Eosinophils # 0.1 10^3/uL (0.0-0.8); Eosinophils % 0.8 %; Hematocrit 35.3 % (37.0-47.0); Lymphocytes # 2.2 10^3/uL (0.8-4.8); Lymphocytes % 29.6 %; Mean Corpuscular Hemoglobin 30.4 pg (28.0-34.0); Mean Corpuscular Volume 89.4 fl (81-99); Mean Platelet Volume 8.5 fL (7.4-10.4); Monocytes # 0.5 10^3/uL (0.2-0.9); Monocytes % 6.5 %; Neutrophils # 4.69 10^3/uL (1.8-7.7); Nucleated Red Blood Cells % 0 %; Platelet Count 330 10^3/cmm (130-400); Red Blood Count 3.95 10^6/uL (4.1-5.3); Red Cell Distribution Width 13.1 % (12.1-15.1); White Blood Count 7.6 10^3/uL (4.0-10.0)
[2022-05-06] MEDS: iohexol 350 mg/mL 500 mL Btl (per mL) IV (17:16)
[2022-05-06 17:42] LABS: Alanine Aminotransferase 11 U/L (0-33); Albumin Level 3.5 g/dL (3.5-5.2); Alkaline Phosphatase 49 U/L (35-105); Anion Gap 17.6 (5-19); Aspartate Amino Transferase 12 U/L (0-32); Blood Urea Nitrogen 7 mg/dL (8-23); Calcium 7.8 mg/dL (8.5-10.5); Carbon Dioxide 25 mmol/L (22-29); Chloride 96 mmol/L (98-107); Globulin 1.9 g/dL (1.3-4.6); Glucose 83 mg/dL (65-115); Magnesium 1.2 mg/dL (1.7-2.3); Osmolality Calculated 279 mOsm/kg (285-295); Sodium 136 mmol/L (136-145); Total Bilirubin 0.3 mg/dL (0.15-1.2); Total Protein 5.4 g/dL (6.6-8.7)
[2022-05-06 17:54] LABS: Potassium 2.6 mmol/L (3.5-5.1)
[2022-05-06 18:05] LABS: Add Urine Microscopic? NO; Charge for UA Resulting for Rev
[2022-05-06] MEDS: sodium chloride 0.9% 500 ML 999 ML IV (18:06)
[2022-05-06] MEDS: fentaNYL 50 mcg/mL INJ 2mL IVP (18:06)
[2022-05-06 18:35] LABS: Urine Color Yellow (Yellow)
[2022-05-06 18:36] LABS: Bilirubin Urine Neg (Negative); Blood Urine Neg (Negative); Glucose Urine UA Norm (Normal); Ketones Urine 3+ (Negative); Leukocyte Esterase Urine Negative (Negative); Nitrate Urine Negative (Negative); Protein Urine Neg (Negative); Specific Gravity, Urine 1.005 (1.005-1.030); Urine Appearance Hazy (CLEAR); Urobilinogen Urine Neg (Negative); pH Urine 5 (5-7)
[2022-05-06] MEDS: potassium chloride ER 20 mEq Tablet 40 MEQ PO ×2 (18:37→19:08)
[2022-05-06] MEDS: magnesium sulfate premix 2 GM/50 ML PIGGYBACK IV (18:37)
[2022-05-06] MEDS: calcium gluconate 0.9% NaCL 1 GM/50 ML PREMIX IV ×2 (19:33→20:24)
[2022-05-06 20:13] LABS: Potassium 2.9 mmol/L (3.5-5.1)
== END 2022-05-06 20:58 | disposition home or self-care (01) ==
PROVIDERS: Emergency Medicine; Emergency Provider Emergency Medicine; PCP Family Medicine
DX: R10.9 Unspecified abdominal pain (principal); R11.11 Vomiting without nausea; R19.7 Diarrhea, unspecified; Z79.84 Long term (current) use of oral hypoglycemic drugs; Z87.891 Personal history of nicotine dependence; E11.9 Type 2 diabetes mellitus without complications; I10 Essential (primary) hypertension; E78.5 Hyperlipidemia, unspecified
CPT/HCPCS: 74177; 80053; 81003; 83735; 84132; 85025; 96365; 96366; 96367; 96375; 99285; J0610; J3010; J3475; J7040; Q9967

== ENCOUNTER 2022-06-09 06:01 | Outpatient (CLI) | payer MEDICARE, MEDICAID, SELFPAY ==
[2022-06-09] VITALS (19 sets, daily range): BP systolic 136–159; BP diastolic 58–109; PULSE 60–94; RESP 12–19; TEMP 36.8; O2SAT 92–94; BMI 38.4
--- NOTE | 2022-06-09 06:00 | XACV_ITS ---
Exam Room: 2 Ht: 160 cm Wt: 98 kg BSA: 2.14 m2 Gender: Female : 1945 Any Known Allergies: Other Exam Priority: Routine Procedure(s): Procedure Description: Diagnostic procedure Procedure Description: Left Heart Catheterization Procedure Description: Right Heart Catheterization Procedure Description: O2 saturation Procedure Description: Coronary Angiography Diagnostic Cath Status: Elective Diagnostic Findings * INDICATION: Severe Low flow low gradient aortic stenosis. * No significant disease noted in the Left Main, Left Anterior Descending, Right, or Circumflex coronary arteries. * Coronary angiography shows right dominance. Conclusions 1. No significant disease noted in the Left Main, Left Anterior Descending, Right, or Circumflex coronary arteries. 2. Severe aortic stenosis with mean gradient across the aortic valve of 47mmHg, aortic valve area of 0.6 cm2. 3. Significantly elevated right and left sided aortic pressure. Recommendations * Patient will be referred for TAVR. * Will need gentle diuresis. * Outpatient cardiology followup in 4 weeks. Diagnostic RX Recommendation: other cardiac therapy w/o CABG/PCI Anticoagulation: Heparin Pressures Phase:Rest AO : 127 / 74 ( 95 ) @ 8:08:00 AM 170 / 78 ( 113 ) @ 8:26:00 AM 170 / 78 ( 113 ) @ 8:26:00 AM LV : 214 / 0 / 31 @ 8:26:00 AM 212 / -1 / 31 @ 8:26:00 AM RV : 60 / 11 / 20 @ 7:54:00 AM PA : 57 / 28 ( 40 ) @ 8:30:00 AM RA : a wave = 19 v wave = 18 mean = 18 @ 7:54:00 AM PCW : a wave = 28 v wave = 38 mean = 30 @ 7:52:00 AM O2 Content Phase:Rest PA : O2 Content O2: 65.2 @ 8:08:00 AM Saturations Phase:Rest AO : 90 @ 8:26:00 AM PA : 65 @ 8:08:00 AM Cardiac Output Phase:Rest Radha : 4 @ 8:37:53 AM Radha Cardiac Index: 2 @ 8:37:53 AM Flow Phase:Rest Qp : 4 @ 8:37:53 AM Qs : 4 @ 8:37:53 AM Valves Phase:DefaultPhase AV : 42.0 @ 8:37:53 AM AV Mean Gradient: 47.0 @ 8:37:53 AM AV Flow: 187 @ 8:37:53 AM AV Area: 0.6 @ 8:37:53 AM AV Area Index: 0.31 @ 8:37:53 AM Clinical Evaluation EBL: 5mL-10mL Procedural Details Procedure Consent Obtained. Pre-Procedure Time Out. Identified patient by full name and date of as verbalized by the patient/guarantor. Does the consent match the physician's order: Yes. Accurate & Complete Informed Consent: Yes. Inpatient/Outpatient History & Physical on Chart: Yes. If H&P is completed, is and addenduem needed: No. Visualize and Verify Site with Patient/Guarantor: N/A. Relevant Radiology Images available: Yes. The risks, benefits, and alternatives of sedation and/or procedure were discussed by physician. The patient agrees to continue. Procedure started. [facility] Clinical Fraility Score: 4: Vulnerable. 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 Chest Pain Symptom Assessment: Asymptomatic. Correct patient, site and procedure confirmed by cath team. PERRLA. Strong, equal hand university internship bilaterally. Lungs clear x 5 lobes. IV Site on Arrival: 22 gauge in the left anticubital. IV Site on Arrival: 20 gauge in the right anticubital for the RHC procedure. IV Fluids: 0.9% NaCl at KVO. 0 mL infused prior to labor mediator. Pre Procedural Pulses: bilateral dorsalis pedis was 2+. Pre Procedural Pulses: bilateral posterior tibial was 2+. Pre Procedural Pulses: bilateral radial was 2+. Patient on room air. right groin was prepped with chloroprep then draped in the usual sterile fashion. right radial was prepped with chloroprep then draped in the usual sterile fashion. right brachial was prepped with chloroprep then draped in the usual sterile fashion. Physician notified. Baseline sample Acquired. HR: 73 BPM. Physician arrived. Patient's son waiting in CPRU room #3. Dr Patel will update at the completion of the procedure. Equipment: 6F - Radial. Cardiac Cath Pack. ACIST Manifold Kit Model BT 2000. Heparinized Saline (2 units/mL), 1000 mL bag. Physician scrubbed in. Immediate Pre-Procedure Time Out. Correct Patient: Yes; Correct Procedure: Yes; Correct Site: Yes; Correct Patient Position: Yes; Correct Supplies: Yes; Dried Flammable Prep: Yes: Blood Products Available: N/A;. Lidocaine 1% infiltrated to the right brachial. [place] in over the 0.014 [place] Guidewire. Oximetry samples were obtained. Normal venous range: 60-85%. Normal arterial range: 95-100%. Pressure measurements obtained. ABG drawn and sent with respiratory therapy. [place] out. Lidocaine 1% infiltrated to the right radial. Arterial access obtained. Lidocaine 1% infiltrated to the right radial. A 5 [place] TIG catheter in over the exchange J wire. Oxygen started at 3liters/min via nasal canula. Multiple views taken of left coronary artery. Catheter redirected to the RCA, unable to cannulate. Removed over the exchange J wire. A 5 [place] JR4 catheter in over the exchange J wire. Multiple views taken of right coronary artery. Catheter removed over the exchange J wire. 6 fr Williamson dual lumen catheter in over the exchange J wire. Jose Martin catheter out over the exchange J wire. A 5 [place] JR4 catheter in over the exchange J wire. Exchange J wire out, 0.035 x 260cm Stiff Angled Glidewire in. EDP Sample taken: LV 214/0,31; HR: 63 BPM; SpO2: 97%. Pullback taken: LV 212/-2,31; AO 170/78(113); Mean: 47mmHg, Peak to Peak: 42mmHg, SEP: 24sec/min; HR: 63 BPM; SpO2: 98%. Catheter removed over the exchange J wire. [place] in. Pressure measurements obtained. [place] out. Dr. Patel scrubbed out. A Manual Compression was successful obtaining hemostatsis at the Right Brachial Vein insertion site. A TR Band was successful obtaining hemostatsis at the Right Radial artery insertion site. TR band placed. Hemostasis obtained. Right Brachial Sheath removed and manual pressure held until hemostasis was achieved. Sterile 4x4 and Op-site applied to the puncture site. No oozing or hematoma noted. Post sheath removal instructions were given and the patient verbalized understanding. Post Procedure: Pulses reassessed and unchanged. PERRLA. Strong, equal hand university internship bilaterally. No VTE prophylaxis required. Medication's Wasted: Lidocaine 1% = 2 mL. Medication's Wasted: Nitro = 49.8 mg. Medication's Wasted: Heparin = 4000 units. Total IV fluids: 78 mL. Post-op diagnosis: Severe , normal coronaries. Complications: none. Estimated blood loss: 5mL-10mL. Responsiveness - Normal response to verbal stimuli; alert and oriented, PERRLA. Airway - Unaffected, no intervention required; spontaneous ventilation. Circulation: W/N/L, pulses unchanged. Nausea/Vomiting: No. Procedure completed. Patient transferred by bed to 1st floor. Patient transferred by stretcher to CPRU. Vital chart was stopped. Access Site Site: Right Brachial Vein Sheath Size: 6 Fr Hemostasis Method: Manual Compression Hemostasis Success: Successful Site: Right Radial artery Sheath Size: 6 Fr Hemostasis Method: TR Band Hemostasis Success: Successful Procedure Medications Start: 7:46 AM Stop: 7:46 AM Medication: Versed Amount: 1 mg Route: I.V. Start: 7:47 AM Stop: 7:47 AM Medication: Versed Amount: 1 mg Route: I.V. Start: 7:58 AM Stop: 7:58 AM Medication: Versed Amount: 1 mg Route: I.V. Start: 7:59 AM Stop: 7:59 AM Medication: Fentanyl Amount: 25 mcg Route: I.V. Start: 8:03 AM Stop: 8:03 AM Medication: Fentanyl Amount: 25 mcg Route: I.V. Start: 8:06 AM Stop: 8:06 AM Medication: Nitrogylcerin Amount: 200 mcg Route: I.A. Start: 8:09 AM Stop: 8:09 AM Medication: Heparin Amount: 5000 units Route: I.V. Start: 8:17 AM Stop: 8:17 AM Medication: Versed Amount: 1 mg Route: I.V. Start: 8:17 AM Stop: 8:17 AM Medication: Fentanyl Amount: 25 mcg Route: I.V. Start: 8:32 AM Stop: 8:32 AM Medication: Fentanyl Amount: 25 mcg Route: I.V. I, the attending physician, have reviewed and verified all procedure medications. Yes, all medications given per verbal order History/Risk Factors Hypertension: Yes Dyslipidemia: Yes Peripheral Arterial Disease (PAD): No Myocardial Infarction (AL): No Obesity: Yes Renal Disease: No Tobacco Use: Former Prior Interventions PCI: No CABG: No Valve Surgery: No Report Signatures Finalized by Mo Patel MD on 06/15/2022 01:41 PM
[2022-06-09 06:48] LABS: Glucose Point of Care 134 mg/dL (70-110)
[2022-06-09 06:48] LABS: Basophils # 0.1 10^3/uL (0.0-0.1); Basophils % 0.9 %; Eosinophils # 0.2 10^3/uL (0.0-0.8); Eosinophils % 2.8 %; Hematocrit 39.2 % (37.0-47.0); Hemoglobin 12.3 g/dL (11.5-15.3); Lymphocytes # 1.6 10^3/uL (0.8-4.8); Mean Corpuscular HGB Conc 31.4 g/dL (30.0-36.0); Mean Corpuscular Hemoglobin 29.9 pg (28.0-34.0); Mean Corpuscular Volume 95.1 fl (81-99); Mean Platelet Volume 8.7 fL (7.4-10.4); Monocytes # 0.5 10^3/uL (0.2-0.9); Monocytes % 6.1 %; Neutrophils # 5.22 10^3/uL (1.8-7.7); Neutrophils % 68.8 %; Nucleated Red Blood Cells % 0 %; Platelet Count 336 10^3/cmm (130-400); Red Blood Count 4.12 10^6/uL (4.1-5.3); Red Cell Distribution Width 13.5 % (12.1-15.1); White Blood Count 7.6 10^3/uL (4.0-10.0)
[2022-06-09] MEDS: diphenhydrAMINE 50 mg Capsule PO (06:59)
[2022-06-09] MEDS: aspirin 325 mg Tablet PO (06:59)
[2022-06-09 07:08] LABS: Anion Gap 12.8 (5-19); Blood Urea Nitrogen 12 mg/dL (8-23); Calcium 9.2 mg/dL (8.5-10.5); Carbon Dioxide 29 mmol/L (22-29); Chloride 100 mmol/L (98-107); Glucose 139 mg/dL (65-115); Osmolality Calculated 288 mOsm/kg (285-295); Potassium 3.8 mmol/L (3.5-5.1); Sodium 138 mmol/L (136-145)
--- NOTE | 2022-06-09 07:26 | W.PM.OPSFHP ---
Same Day Surgery H&P Indication for Procedure/HPI DATE OF PROCEDURE: June 09, 2022 CHIEF COMPLAINT/INDICATIONFOR SURGICAL PROCEDURE: Severe aortic stenosis PREOP DIAGNOSIS: Severe aortic stenosis PLANNED PROCEDURE: Operation Date: 06/09/22 07:00 Proposed Procedures p [facility] w/wo 84560 I35.0,R06.02(Bilateral) - Mo Patel M.D Possible percutaneous coronary intervention 77-year-old woman with past medical history of hypothyroidism, diabetes, hypertension who has recently been diagnosed with severe low-flow low gradient aortic stenosis is here for pre-TAVR right and left heart cath. She has intermittent chest discomfort episodes. ROS CONSTITUTIONAL: No fever chills weight loss or gain or night sweats. [] HEENT: Normocephalic, atraumatic.[] RESPIRATORY: No cough, sputum, hemoptysis or wheezing.[] CARDIOVASCULAR: No shortness of breath, chest pain, PND, orthopnea, lower extremity edema, presyncope or syncope. [] GI: no nausea vomiting diarrhea. 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 [] MUSCULOSKELETAL: No knee or joint pain or rashes. [] Medications/Allergies* Home Medications Medication Instructions Recorded Confirmed Type krill oil 500 mg capsule 500 mg PO DAILY 08/05/21 06/09/22 History acetaminophen 325 mg tablet 325 mg PO QID PRN Pain, Mild 05/05/22 06/09/22 History (Tylenol) zinc acetate 50 mg (zinc) capsule 50 mg PO DAILY 05/05/22 06/09/22 History Allergies/Adverse Reactions Allergy/AdvReac Type Severity Reaction Status Date / Time codeine Allergy ADR-Itching Verified 06/09/22 06:47 Penicillins Allergy ADR-Chest Verified 06/09/22 06:47 Pain pregabalin [From Lyrica] Allergy swelling Verified 06/09/22 06:47 of legs and feet Current Medications: Generic Name Dose Route Start Last Admin Trade Name Freq PRN Reason Stop Dose Admin Sodium Chloride 1,000 mls @ 50 mls/hr 06/09/22 06:00 06/09/22 06:59 Sodium Chloride 0.9% IV 06/10/22 01:59 Not Given .Q20H ONE Pertinent History/Comorbid Conditions* Medical History (Updated 06/06/22 @ 12:06 by Magy Abbott APRN) Aortic aneurysm Bipolar depression Chronic low back pain Chronic pain Diabetes GERD (gastroesophageal reflux disease) HTN (hypertension) Hyperlipidemia Hypersomnia Hypothyroidism Insomnia Neuropathy Obesity Panic anxiety syndrome Psychiatric care Pulmonary embolism Vitamin D deficiency Surgical History (Updated 06/03/19 @ 10:29 by Kristy Topete MD) H/O colonoscopy 2017 H/O lumpectomy 2000 History of cholecystectomy History of esophagogastroduodenoscopy 2018 Hx of hysterectomy vaginal 1970 Hx of tonsillectomy 1965 Family History (Updated 05/05/22 @ 10:11 by Estelle Marrero RN) Diabetes CAD (coronary artery disease) Hx of CABG Sister Cancer Hypertension Stroke Son X2 sons (one ) Mother Social History Smoking and tobacco status: former smoker Second hand smoke exposure: No Smoking risk assessment/counseling performed?: No Alcohol intake: never Desire information about alcohol rehabilitation?: No Counseling given: No Desire information about substance/drug rehabilitation?: No Counseling given: No Lives independently: Yes Marital status: / Current occupational status: retired Current gender identity: Female Pertinent Exam Findings alert, oriented x 3, clear to auscultation bilaterally and regular rate & rhythm Conscious Sedation Assessment PATIENT ASSESSED PRIOR TO SEDATION, WITH NO CHANGE NOTED: Yes AIRWAY EVAL/ANESTHESIA PLAN: normal airway, ASA III, Local Anesthesia, Risks, benefits & alternatives of sedation and/or procedure discussed and Patient agrees to continue as planned Recommendations Surgery/Procedure today (Right heart cath/Left heart cath/possible percutaneous coronary intervention) Coding Level of Care Code Acute Code for Domig Fwhaleigh
[2022-06-09 08:18] LABS: Alveolar-Arterial Oxygen Gradi 4.3 mmHg (5-10); Arterial Blood Gas Hematocrit 32.8 % (37-47); Blood Gas Allen Test Pos; Blood Gas Sample Type Arterial; Carboxyhemoglobin 2.5 %THgb (0.4-20.1); HGB O2 Sat 87.1 % (95-100); Methemoglobin 1.1 % (0.4-1.5); Total Hemoglobin 10.7 g/dL (12-16)
[2022-06-09 08:20] LABS: Alveolar-Arterial Oxygen Gradi 6.7 mmHg (5-10); Arterial Blood Gas Hematocrit 59.4 % (37-47); Blood Gas Allen Test Pos; Blood Gas Sample Site Not specified; Blood Gas Sample Type Arterial; Carboxyhemoglobin 2.4 %THgb (0.4-20.1); HGB O2 Sat 63.2 % (95-100); Methemoglobin 0.7 % (0.4-1.5); Total Hemoglobin 19.4 g/dL (12-16)
[2022-06-09 08:21] LABS: Blood Gas Operator Identificat PA
[2022-06-09 08:21] LABS: Blood Gas Operator Identificat AO
[2022-06-09 08:27] LABS: Blood Gas Sample Site AO; Oxygen Device ROOM AIR
[2022-06-09 08:28] LABS: Oxygen Device ROOM AIR
--- NOTE | 2022-06-09 08:40 | SUR.PHASEII ---
POST CATH NOTE Patient brought to CPRU via bed. Status post cardiac catheterization via the right radial artery and right brachial Vein. The radial access site has [address] and is currently hemostaic. Small hematoma reported after initial band was placed so a 2nd band was ordered. Looking at the site i cannot palpate the hematoma to size as it is small and is beneath the 2nd band site. No s/s of continued bleeding noted. Informed to call if the bands change or start to bleed or if it hurts. She verbalized understanding. The brachial access site is free of active bleeding or hematoma. A pressure bandage is applied to the site. VS and assessments per flowsheet.
--- NOTE | 2022-06-09 09:13 | SUR.PHASEII ---
IV NS Infusing at 100 ml/hr post cath.
--- NOTE | 2022-06-09 09:49 | SUR.PHASEII ---
BAND REMOVAL TR band removal began per protocol. No change in assessment.
--- NOTE | 2022-06-09 10:00 | SUR.PHASEII ---
BRACHIAL PRESSURE DRESSING REMOVED. No s/s of bleeding present. Band aid applied. Will continue to monitor.
--- NOTE | 2022-06-09 11:30 | SUR.PHASEII ---
BAND REMOVAL TR BAND REMOVED. NO CHANGES IN ASSESSMENT.
--- NOTE | 2022-06-09 13:22 | PC.NURSE ---
Discharge orders received. Puncture site to patients right wrist clean, dry et intact. Slight ecchymosis noted, no drainage. Vitals stable. No c/o pain or discomfort. IV removed. Discharge instructions reviewed with patient. Patient verbalized understanding of all teaching. Follow up appointments made. Patient discharged home, with her son, via wheelchair in private vehicle.
== END 2022-06-09 13:31 | disposition home or self-care (01) ==
PROVIDERS: PCP Family Medicine; Visit Provider Internal Medicine
DX: I35.0 Nonrheumatic aortic (valve) stenosis (principal); E03.9 Hypothyroidism, unspecified; I10 Essential (primary) hypertension; K21.9 Gastro-esophageal reflux disease without esophagitis; E78.5 Hyperlipidemia, unspecified; E11.40 Type 2 diabetes mellitus with diabetic neuropathy, unspecified; E66.9 Obesity, unspecified; Z68.38 Body mass index [BMI] 38.0-38.9, adult; Z87.891 Personal history of nicotine dependence
CPT/HCPCS: 36415; 36416; 80048; 82810; 82962; 85025; 93460; 96361; 96365; 99152; 99153; C1751; C1769; C1887; C1894; J1644; J2250; J3010; J3490; J7030; Q0163; Q9967

== ENCOUNTER → 2022-06-13 08:45 | Outpatient (BNVA) | payer MEDICARE, MEDICAID, SELFPAY | PROVIDERS: PCP Family Medicine; Visit Provider Nurse Practitioner Family | DX: I35.0 Nonrheumatic aortic (valve) stenosis (principal); Z87.891 Personal history of nicotine dependence | CPT/HCPCS: 36415; 80048; 99214 ==

== ENCOUNTER → 2022-07-28 10:48 | Outpatient (BNVA) | payer MEDICARE, MEDICAID, SELFPAY | PROVIDERS: PCP Family Medicine; Visit Provider Internal Medicine Cardiovascular Disease | DX: I35.0 Nonrheumatic aortic (valve) stenosis (principal); R01.1 Cardiac murmur, unspecified; I71.20 Thoracic aortic aneurysm, without rupture, unspecified; Z87.891 Personal history of nicotine dependence | CPT/HCPCS: 99214 ==

== ENCOUNTER → 2022-10-27 10:50 | Outpatient (BNVA) | payer MEDICARE, SELFPAY | PROVIDERS: PCP Family Medicine; Visit Provider Family Medicine | DX: R19.7 Diarrhea, unspecified (principal); E03.9 Hypothyroidism, unspecified; E55.9 Vitamin D deficiency, unspecified; E11.65 Type 2 diabetes mellitus with hyperglycemia; G47.00 Insomnia, unspecified; L30.9 Dermatitis, unspecified; L20.82 Flexural eczema | CPT/HCPCS: 80053; 80061; 82306; 83036; 84439; 84443; 85025 ==

== ENCOUNTER → 2022-11-03 11:14 | Outpatient (BNVA) | payer MEDICARE, MEDICAID, SELFPAY | PROVIDERS: PCP Family Medicine; Visit Provider Internal Medicine Cardiovascular Disease | DX: I35.0 Nonrheumatic aortic (valve) stenosis (principal); R51.9 Headache, unspecified; G89.29 Other chronic pain; F41.0 Panic disorder [episodic paroxysmal anxiety]; F41.9 Anxiety disorder, unspecified; F32.9 Major depressive disorder, single episode, unspecified; E78.2 Mixed hyperlipidemia; E11.65 Type 2 diabetes mellitus with hyperglycemia; I10 Essential (primary) hypertension; Z87.891 Personal history of nicotine dependence | CPT/HCPCS: 99214 ==

== ENCOUNTER 2022-11-24 14:49 | Emergency (ER) | payer MEDICARE, MEDICAID, SELFPAY ==
[2022-11-24 14:51] VITALS: BP 126/79; PULSE 87; RESP 18; TEMP 36.9; O2SAT 94; BMI 36.0
--- NOTE | 2022-11-24 14:51 | XRR_ITS ---
PROCEDURE INFORMATION: Exam: XR Chest Exam date and time: 11/24/2022 2:59 PM Age: 77 years old Clinical indication: Angina pectoris; Patient HX: Chest pain/afib; Additional info: Cp TECHNIQUE: Imaging protocol: Radiologic exam of the chest. Views: 1 view. COMPARISON: CR XR chest 1V 55024 04/27/2019 9:56 PM FINDINGS: Lungs: No focal infiltrate or consolidation. Pulmonary vascularity is within normal limits. Pleural spaces: Unremarkable. No pleural effusion. No pneumothorax. Heart/Mediastinum: Upper limits of normal cardiac size. Bones/joints: Visualized osseous structures show no acute abnormality. Soft tissues: Chronic small foreign body densities within the soft tissues of the visualized lower face as seen with prior exam. Other findings: No significant change with prior exam. XR/XR chest 1V portable [id number] IMPRESSION: Upper limits of normal cardiac size and without acute findings.
--- NOTE | 2022-11-24 14:51 | ECG_ITS ---
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 Measurements Intervals [place] Rate: 77 P: 0 NV: 0 QRS: 72 QRSD: 90 T: -38 QT: 388 QTc: 441 Interpretive Statements ATRIAL FIBRILLATION NONSPECIFIC ST & T-WAVE ABNORMALITY Compared to ECG 04/28/2019 00:07:41 T-wave abnormality now present Sinus rhythm no longer present First degree AV block no longer present Electronically Signed On 11-24-2022 15:01:40 CDT by Mo Patel M.D. [id number]
--- NOTE | 2022-11-24 15:12 | ED_ITS ---
HPI - Chest Pain General: Chief Complaint: Chest Pain Stated Complaint: chest pain Time Seen by Provider: 11/24/22 14:50 Source: patient and EMS Mode of arrival: EMS Limitations: no limitations History of Present Illness: 77-year-old female who states that she is just been feeling kind of tired and fatigued and having some mild chest pains over the last 2 to 3 days she had seen her PCP today and was diagnosed with new onset A-fib her heart rates been normal she is written a prescription of Eliquis which she states she is going to fill tomorrow did not feel today. She denies any severe pain currently denies any shortness of breath. Associated symptoms: Deny abdominal pain, dyspnea, fever(s), nausea or vomiting Review of Systems Const: Denies: fever(s), chills, body aches or change in appetite ENMT: Denies: throat pain or dental pain Card: Denies: chest pain Resp: Denies: dyspnea GI: Denies: abdominal pain, nausea, vomiting or diarrhea : Denies: dysuria Musc: Denies: neck pain or back pain Skin/Breast: Denies: rash Neuro: Denies: headache(s) PFSH ED PFSH: Medical History Aortic aneurysm Bipolar depression Chronic low back pain Chronic pain Diabetes GERD (gastroesophageal reflux disease) HTN (hypertension) Hyperlipidemia Hypersomnia Hypothyroidism Insomnia Neuropathy Obesity Panic anxiety syndrome Psychiatric care Pulmonary embolism Vitamin D deficiency Surgical History H/O colonoscopy 2018 H/O lumpectomy 2001 History of cholecystectomy History of esophagogastroduodenoscopy 2018 Hx of hysterectomy vaginal 1970 Hx of tonsillectomy 1965 Family History Son Stroke X2 sons (one ) Mother Stroke Sister Hx of CABG Other CAD (coronary artery disease) Cancer Diabetes Hypertension Social History Smoking and tobacco status: former smoker Second hand smoke exposure: No Smoking risk assessment/counseling performed?: No Alcohol intake: never Desire information about alcohol rehabilitation?: No Counseling given: No Substance/Drug Use: never Desire information about substance/drug rehabilitation?: No Counseling given: No Lives independently: Yes Marital status: / Current occupational status: retired Do you think of yourself as: Straight/Heterosexual Current gender identity: Female Female Reproductive History: Spontaneous abortions: No Physical Exam Const: COMMON NORMALS: no acute distress, patient oriented x3 and healthy a ppearing HENMT: COMMON NORMALS: normocephalic and atraumatic HEAD & SCALP: normocephalic and atraumatic Neck/C-Spine: COMMON NORMALS: full ROM and supple Chest: COMMONS NORMALS: normal inspection of the chest and normal palpation of entire chest wall Resp: COMMON NORMALS: normal respiratory effort, No retractions, No use of accessory muscles and clear to auscultation bilaterally AUSCULTATION: clear to auscultation bilaterally Cardio: COMMON NORMALS: regular rate and No murmurs present (Cardio) RATE: regular rate RHYTHM: abnormal rhythm irregularly irregular GI: COMMON NORMALS: Normal to inspection, nondistended, normoactive bowel sounds present, Soft to palpation, non-tender and no masses PALPATION: Yes Soft to palpation Extremity: COMMON NORMALS: normal to inspection and full ROM Neuro: COMMON NORMALS: patient oriented x3, moves all extremities and no focal motor deficits Psych: COMMON NORMALS: mental status grossly normal, Normal thought process present and cooperative THOUGHT PROCESS: Normal thought process present Skin: COMMON NORMALS: no rashes or lesions noted and no wounds GENERAL SKIN EXAM: no rashes or lesions noted Course Vital Signs: Vital signs: Vital Signs Temperature 98.4 F 11/24/22 14:51 Pulse Rate 87 11/24/22 14:51 Respiratory Rate 18 11/24/22 14:51 Blood Pressure 126/79 11/24/22 14:51 Pulse Oximetry 94 11/24/22 14:51 Oxygen Delivery Me thod Nasal Cannula 11/24/22 14:51 Oxygen Flow Rate 2 11/24/22 14:51 MDM - Chest Pain Medical Decision Making Patient presents here with just not feeling well she is in A-fib she did not get her Eliquis filled today we will give her dose Eliquis here her troponin here is normal she had some minimal chest pains been going on for days no signs of acute coronary syndrome do not believe she needs a 2-hour Trop she has no signs of acute dissection she is follow-up with PCP and return if worsening. Medical Records I reviewed the patient's medical records. Lab Data I reviewed the patient's lab results. 11/24/22 15:20 11/24/22 15:20 Radiology Impressions Chest X-Ray 11/24/22 14:51 IMPRESSION: Upper limits of normal cardiac size and without acute findings. Laboratory Results WBC 7.8 10^3/uL (4.0-10.0) 11/24/22 15:20 RBC 4.11 10^6/uL (4.1-5.3) 11/24/22 15:20 Hgb 12.2 g/dL (11.5-15.3) 11/24/22 15:20 Hct 38.1 % (37.0-47.0) 11/24/22 15:20 MCV 92.7 fl (81-99) 11/24/22 15:20 MCH 29.7 pg (28.0-34.0) 11/24/22 15:20 MCHC 32.0 g/dL (30.0-36.0) 11/24/22 15:20 RDW 14.6 % (12.1-15.1) 11/24/22 15:20 Plt Count 285 10^3/cmm (130-400) 11/24/22 15:20 MPV 9.2 fL (7.4-10.4) 11/24/22 15:20 Neut % (Auto) 65.2 % 11/24/22 15:20 Lymph % (Auto) 23.2 % 11/24/22 15:20 Imperial % (Auto) 6.4 % 11/24/22 15:20 Eos % (Auto) 4.0 % 11/24/22 15:20 Baso % (Auto) 0.8 % 11/24/22 15:20 Neut # (Auto) 5.07 10^3/uL (1.8-7.7) 11/24/22 15:20 Lymph # (Auto) 1.8 10^3/uL (0.8-4.8) 11/24/22 15:20 Imperial # (Auto) 0.5 10^3/uL (0.2-0.9) 11/24/22 15:20 Eos # (Auto) 0.3 10^3/uL (0.0-0.8) 11/24/22 15:20 Baso # (Auto) 0.1 10^3/uL (0.0-0.1) 11/24/22 15:20 Nucleated RBC % (auto) 0 % 11/24/22 15:20 Nucleated RBCs # 0.0 /100WBC 11/24/22 15:20 PT 12.50 SECONDS (12.1-14.9) 11/24/22 15:20 INR 0.91 (0.8-1.2) 11/24/22 15:20 Sodium 135 mmol/L (136-145) L 11/24/22 15:20 Potassium 3.1 mmol/L (3.5-5.1) L 11/24/22 15:20 Chloride 97 mmol/L (98-107) L 11/24/22 15:20 Carbon Dioxide 24 mmol/L (22-29) 11/24/22 15:20 Anion Gap 17.1 (5-19) 11/24/22 15:20 BUN 12 mg/dL (8-23) 11/24/22 15:20 Creatinine 0.6 mg/dL (0.5-0.9) 11/24/22 15:20 GFR Calculation Not Reportable 11/24/22 15:20 Glucose 196 mg/dL (65-115) H 11/24/22 15:20 Calculated Osmolality 285 mOsm/kg (285-295) 11/24/22 15:20 Calcium 8.6 mg/dL (8.5-10.5) 11/24/22 15:20 Total Bilirubin 0.2 mg/dL (0.15-1.2) 11/24/22 15:20 AST 13 U/L (0-32) 11/24/22 15:20 ALT 45 U/L (0-33) H 11/24/22 15:20 Alkaline Phosphatase 103 U/L (35-105) 11/24/22 15:20 Troponin T Baseline 6 ng/L (0-10) 11/24/22 15:20 Total Protein 5.8 g/dL (6.6-8.7) L 11/24/22 15:20 Albumin 3.8 g/dL (3.5-5.2) 11/24/22 15:20 Globulin 2.0 g/dL (1.3-4.6) 11/24/22 15:20 Lipase 22 U/L (13-60) 11/24/22 15:20 Discharge Plan Discharge Patient Disposition: Home Clinical Impression: Atrial fibrillation, Chest pain Condition: Stable Prescriptions: No Action baclofen 10 mg tablet 10 mg PO TID 90 Days Qty: 90 2RF Eliquis DVT-PE Treat 30D Start 5 mg (74 tabs) tablets,dose pack See Rx Instructions PO PER PKG DIR Qty: 74 0RF Rx Instructions: PO PER PKG DIR hydrocodone-acetaminophen 10-325 mg tablet 1 tab PO BID 30 Days Qty: 60 0RF acetaminophen [Tylenol] 325 mg tablet 325 mg PO QID PRN (Reason: Pain, Mild) clonazepam 1 mg tablet 1 mg PO BID Qty: 60 2RF Rx Instructions: Take 1 tablet twice daily, if needed for anxiety/panic symptoms multivitamin Tablet 1 tab PO DAILY triamcinolone acetonide 0.1 % cream 1 applic topical DAILY Qty: 80 1RF (DME) Accu-Chek SmartView Test Strip Strip See Rx Instructions .ROUTE .MEDSUPPLY Qty: 100 6RF Rx Instructions: to test 1 time daily pen needle, diabetic [TRUEplus Pen Needle] 32 gauge x 5/32 needle See Rx Instructions .ROUTE .COMPLEX Qty: 100 3RF Dose Instruction: use as directed with victoza. Rx Instructions: use as directed with victoza. Victoza 3-[place] 0.6 mg/0.1 mL (18 mg/3 mL) pen injector See Rx Instructions .ROUTE .COMPLEX Qty: 9 3RF Dose Instruction: inject 1.8 MG (0.3 ml) subcutaneously daily Rx Instructions: inject 1.8 MG (0.3 ml) subcutaneously daily metoprolol tartrate 25 mg tablet 25 mg PO BID Qty: 180 2RF amlodipine 5 mg tablet 5 mg PO DAILY Qty: 90 2RF losartan 25 mg tablet 25 mg PO DAILY Qty: 90 2RF esomeprazole magnesium 40 mg capsule,delayed release(DR/EC) 40 mg PO DAILY 90 Days Qty: 90 2RF alcohol swabs [Alcohol Prep Pads] Pads, Medicated 1 pad topical TID Qty: 100 2RF Rx Instructions: Clean the skin by using 1 pad on the affected area before applying and topical cream, 3 times daily. levothyroxine 125 mcg tablet 125 mcg PO DAILY 90 Days Qty: 90 2RF calcipotriene 0.005 % cream See Rx Instructions topical DAILY Qty: 360 0RF Rx Instructions: topically daily; Apply 1-2 grams topically to affected area 1-2 times per day. Do Not Apply to face. bupropion HCl [Wellbutrin XL] 300 mg tablet extended release 24 hr 300 mg PO QAM Qty: 90 0RF Rx Instructions: take one tablet by mouth every morning trazodone 300 mg tablet 300 mg PO .q hs PRN (Reason: insomnia) Qty: 90 0RF Rx Instructions: Take one-half to 1 tablet daily at bedtime, if needed for insomnia Discharge Orders: Discharge ED (Routine); Ordered 11/24/22 Ordered By: Florencia Briggs Referrals: Xavi Ordonez DO [Primary Care Provider] - 1-3 days Discharge Diet: Advance as tolerated Discharge Activity: Resume usual activity Patient Instructions: A-fib (Atrial Fibrillation) (ED) Coding Level of Care Code ED Plate [employer] Install[employer] Helper for Dasia Hardin
[2022-11-24 15:38] LABS: Basophils # 0.1 10^3/uL (0.0-0.1); Basophils % 0.8 %; Eosinophils # 0.3 10^3/uL (0.0-0.8); Hematocrit 38.1 % (37.0-47.0); Hemoglobin 12.2 g/dL (11.5-15.3); Lymphocytes # 1.8 10^3/uL (0.8-4.8); Lymphocytes % 23.2 %; Mean Corpuscular Hemoglobin 29.7 pg (28.0-34.0); Mean Corpuscular Volume 92.7 fl (81-99); Mean Platelet Volume 9.2 fL (7.4-10.4); Monocytes # 0.5 10^3/uL (0.2-0.9); Monocytes % 6.4 %; Neutrophils # 5.07 10^3/uL (1.8-7.7); Neutrophils % 65.2 %; Nucleated Red Blood Cells % 0 %; Platelet Count 285 10^3/cmm (130-400); Red Blood Count 4.11 10^6/uL (4.1-5.3); Red Cell Distribution Width 14.6 % (12.1-15.1); White Blood Count 7.8 10^3/uL (4.0-10.0)
[2022-11-24 15:51] LABS: INR 0.91 (0.8-1.2)
[2022-11-24 15:55] LABS: Alanine Aminotransferase 45 U/L (0-33); Albumin Level 3.8 g/dL (3.5-5.2); Alkaline Phosphatase 103 U/L (35-105); Anion Gap 17.1 (5-19); Aspartate Amino Transferase 13 U/L (0-32); Blood Urea Nitrogen 12 mg/dL (8-23); Calcium 8.6 mg/dL (8.5-10.5); Carbon Dioxide 24 mmol/L (22-29); Chloride 97 mmol/L (98-107); Creatinine Clr Calc Pharmacy 68.0281; Glucose 196 mg/dL (65-115); Lipase 22 U/L (13-60); Osmolality Calculated 285 mOsm/kg (285-295); Potassium 3.1 mmol/L (3.5-5.1); Sodium 135 mmol/L (136-145); Total Bilirubin 0.2 mg/dL (0.15-1.2); Total Protein 5.8 g/dL (6.6-8.7)
[2022-11-24 15:56] LABS: Troponin(5th) Baseline 6 ng/L (0-10)
[2022-11-24] MEDS: apixaban 5 mg Tablet 10 MG PO (16:38)
== END 2022-11-24 16:46 | disposition home or self-care (01) ==
PROVIDERS: Emergency Provider Emergency Medicine; PCP Family Medicine
DX: R07.9 Chest pain, unspecified (principal); I48.91 Unspecified atrial fibrillation; Z79.01 Long term (current) use of anticoagulants; Z87.891 Personal history of nicotine dependence; E11.9 Type 2 diabetes mellitus without complications; I10 Essential (primary) hypertension; E78.5 Hyperlipidemia, unspecified; Z86.711 Personal history of pulmonary embolism
CPT/HCPCS: 71045; 80053; 83690; 84484; 85025; 85610; 93005; 99285

== ENCOUNTER → 2023-05-04 11:15 | Outpatient (BNVA) | payer MEDICARE, MEDICAID, SELFPAY | PROVIDERS: PCP Family Medicine; Visit Provider Internal Medicine Cardiovascular Disease | DX: I11.0 Hypertensive heart disease with heart failure (principal); I50.30 Unspecified diastolic (congestive) heart failure; I26.99 Other pulmonary embolism without acute cor pulmonale; E78.2 Mixed hyperlipidemia; I48.91 Unspecified atrial fibrillation; Z95.2 Presence of prosthetic heart valve; F31.9 Bipolar disorder, unspecified; F41.9 Anxiety disorder, unspecified; E11.65 Type 2 diabetes mellitus with hyperglycemia; R51.9 Headache, unspecified; G89.29 Other chronic pain; Z87.891 Personal history of nicotine dependence | CPT/HCPCS: 99214 ==

== ENCOUNTER 2023-07-06 09:04 | Emergency (ER) | payer MEDICARE, MEDICAID, SELFPAY ==
[2023-07-06 09:04] VITALS: BP 169/85; PULSE 65; RESP 20; TEMP 37.1; O2SAT 96; BMI 36.8
--- NOTE | 2023-07-06 09:21 | PC.NURSE ---
PT PRESENTS WITH GENERALIZED BODY ACHES. PT STATES SHE STOPPED TAKING HER TRAZADONE AND FEELS SHE IS HAVING SIDE EFFECTS OF THAT. PT STATES HER BODY IS TINGLING AND SHE FEELS THOUGH HER NERVES ARE ON FIRE. PT MENTIONED SHE HAS HAD SUICIDAL THOUGHTS SINCE STOPPING THE MEDICATIONS AND WAS EVALUATED BY [facility] FOR THIS. PT DENIES ANY SI/HI CURRENTLY. PT IS ALERT AND ORIENTED, WITH EVEN UNLABORED RESPIRATIONS WITH PATENT AIRWAY.
[2023-07-06 09:41] LABS: Basophils # 0.1 10^3/uL (0.0-0.1); Basophils % 0.6 %; Eosinophils # 0.1 10^3/uL (0.0-0.8); Eosinophils % 1.4 %; Hematocrit 38.2 % (36-47); Lymphocytes # 1.6 10^3/uL (0.8-4.8); Lymphocytes % 20.4 %; Mean Corpuscular HGB Conc 33.2 g/dL (30-55); Mean Corpuscular Hemoglobin 30.3 pg (27-33); Mean Corpuscular Volume 91.2 fl (85-98); Mean Platelet Volume 8.7 fL (7.4-10.4); Monocytes # 0.5 10^3/uL (0.2-0.9); Monocytes % 6.1 %; Neutrophils # 5.56 10^3/uL (1.8-7.7); Nucleated Red Blood Cells % 0 %; Platelet Count 314 10^3/cmm (157-399); Red Blood Count 4.19 10^6/uL (3.85-5.65); Red Cell Distribution Width 13.3 % (12.1-15.1); White Blood Count 7.84 10^3/uL (3.29-11.43)
[2023-07-06 09:55] LABS: Alanine Aminotransferase 59 U/L (0-33); Albumin Level 3.9 g/dL (3.5-5.2); Alkaline Phosphatase 105 U/L (35-105); Anion Gap 14.6 (5-19); Aspartate Amino Transferase 28 U/L (0-32); Blood Urea Nitrogen 15 mg/dL (8-23); Calcium 8.7 mg/dL (8.5-10.5); Carbon Dioxide 25 mmol/L (22-29); Chloride 97 mmol/L (98-107); Globulin 2.4 g/dL (1.3-4.6); Glucose 137 mg/dL (65-115); Osmolality Calculated 279 mOsm/kg (285-295); Potassium 3.6 mmol/L (3.5-5.1); Sodium 133 mmol/L (136-145); Total Bilirubin 0.4 mg/dL (0.15-1.2); Total Protein 6.3 g/dL (6.6-8.7)
--- NOTE | 2023-07-06 11:02 | XR_ITS ---
WS: [id number] Portable AP upright chest, 07/06/2023 Clinical Data: screen Comparison: Portable chest, 11/24/2022 Findings: No nodules, masses or effusions are seen. The heart is enlarged. The pulmonary vascularity is not increased. No pneumonia or pneumothorax is seen. Impression: Cardiomegaly.
--- NOTE | 2023-07-06 11:04 | ECG_ITS ---
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 Measurements Intervals [place] Rate: 82 P: 0 UT: 0 QRS: 13 QRSD: 83 T: 31 QT: 377 QTc: 442 Interpretive Statements ATRIAL FIBRILLATION POSSIBLE ANTERIOR MYOCARDIAL INFARCTION , PROBABLY OLD [30 ms Q WAVE IN V3/V4, OR R < 0.2 mV IN V4] Compared to ECG 11/24/2022 14:57:17 Myocardial infarct finding now present T-wave abnormality no longer present Electronically Signed On 07-06-2023 17:46:45 [employer]UR[employer] MIXER by Mo Patel M.D. [email or web address]
--- NOTE | 2023-07-06 11:09 | PC.PHAR ---
LACHELLE IBARRA CURRENT MED LIST 07/06/23
--- NOTE | 2023-07-06 11:19 | ED_ITS ---
Documented by User: Madhu Marcano DO 07/11/23 06:25 HPI - General Adult 2 General: Chief complaint: General Medical Stated complaint: pain all over Time Seen by Provider: 07/06/23 09:04 Source: patient Mode of arrival: EMS History of Present Illness: 78-year-old female brought in by EMS com plaining of pain all over. She made a comment initially the triage nurse she had thoughts of suicide but stated she was not going to do anything. She came in because she had stopped her trazodone about a week ago and has had more pain and thoughts of suicide since then. She denies fever sweats or chills she has had a little bit of a cough no vomiting or diarrhea no dysuria urgency or frequency. She has nondescript chest and extremity pain no back pain. No abdominal pain. Onset (ago): week(s) Associated symptoms: Deny chest pain, confusion, cough, diaphoresis, decreased appetite, dyspnea, fevers/chills, headache(s), malaise, nausea, rash, palpitations, seizures, short of breath, syncope, vomiting or weakness Treatments prior to arrival: none Review of Systems 2 Const: Denies: malaise or diaphoresis Card: Denies: chest pain, palpitations or syncope Resp: Denies: dyspnea GI: Denies: nausea or vomiting : Denies: dysuria, urinary frequency or urinary urgency Musc: Denies: neck pain or back pain Skin/Breast: Denies: rash Neuro: Denies: headache(s) or confusion PFSH ED 2 PFSH: Medical History Major depressive disorder, recurrent episode, moderate Psychiatric care Chronic low back pain Panic anxiety syndrome Bipolar depression Aortic aneurysm Obesity Hyperlipidemia GERD (gastroesophageal reflux disease) Diabetes Vitamin D deficiency Hypersomnia Pulmonary embolism Neuropathy Insomnia HTN (hypertension) Hypothyroidism Chronic pain Surgical History S/P TAVR (transcatheter aortic valve replacement) History of cholecystectomy H/O lumpectomy 2000 Hx of tonsillectomy 1965 Hx of hysterectomy vaginal 1970 History of esophagogastroduodenoscopy 2018 H/O colonoscopy 2018 Family History Son Stroke X2 sons (one ) Mother Stroke Sister Hx of CABG Other CAD (coronary artery disease) Cancer Diabetes Hypertension Social History Smoking and tobacco/nicotine status: former use of tobacco/nicotine Second hand smoke exposure: No Alcohol intake: never Substance/Drug Use: never Lives independently: Yes Marital status: / Current occupational status: retired Do you think of yourself as: Straight/Heterosexual Current gender identity: Female Female Reproductive History: Spontaneous abortions: No Physical Exam 2 Const: GENERAL APPEARANCE: cooperative and comfortable O RIENTATION/CONSCIOUSNESS: Yes awake, Yes oriented to person, Yes oriented to place and Yes oriented to time HENMT: COMMON NORMALS: normocephalic, atraumatic and hearing grossly normal bilaterally HEAD & SCALP: normocephalic and atraumatic Resp: COMMON NORMALS: normal respiratory effort, No retractions, No use of accessory muscles and clear to auscultation bilaterally AUSCULTATION: clear to auscultation bilaterally Cardio: COMMON NORMALS: regular rate, regular rhythm and No murmurs present (Cardio) RATE: regular rate RHYTHM: regular rhythm GI: COMMON NORMALS: Soft to palpation and No hepatosplenomegaly present A USCULTATION: Yes normoactive bowel sounds PALPATION: Yes Soft to palpation, No Tenderness to palpation present (GI), No Guarding due to palpation present (GI) and Yes No hepatosplenomegaly present Extremity: COMMON NORMALS: normal to inspection, capillary refill normal, no clubbing, cyanosis or edema, no calf tenderness and no pedal edema Neuro: SENSORIUM/ORIENTATION: Yes oriented to person, Yes oriented to place and Yes oriented to time Skin: COMMON NORMALS: no rashes or lesions noted GENERAL SKIN EXAM: no rashes or lesions noted Course 2 Vital Signs: Vital signs: Vital Signs Temperature 98.7 F 07/06/23 09:04 Pulse Rate 60 07/07/23 06:37 Respiratory Rate 16 07/07/23 08:02 Blood Pressure 145/84 07/07/23 06:37 Pulse Oximetry 97 07/07/23 06:37 Oxygen Delivery Me thod Room Air 07/06/23 18:34 [facility] - General Adult Medical Decision Making Initially had been anticipating discharge for patient was again recommend starting her on pregabalin. However as it was discussing her laboratory findings or suggestions she made several comments alluding to harming herself. She alluded specifically to nearly killing herself a week ago. When I asked more questions about the issue of self-harm she states she has thought about it often through the years. She tells me that her son suddenly her of many years in her surviving son now has pancreatic cancer. She lives at home alone. She does have difficult time getting around. She expresses frustration with dealing with her pain. She admits to having been hospitalized in the past for suicidal ideation. Given her history of suicidal ideation and multiple comments and her overall situation socially and the fact that she recently stopped her medications which seem to have worsened her suicidal thoughts. She was on 300 trazodone which is pretty significant dose. Restarting it at the previous dose I do not think is a good option for her. Concerned about other options she might use for chronic pain as there likely to worsen depression or suicidal thoughts (gabapentin or pregabalin). Will place her on a 96-hour hold I do think she needs to have an evaluation for her depression and suicidal ideation. Dr. Diallo at [facility] has excepted. 07/06/23 at 18:05--I received report from the off going ER physician Dr. Marcano, we discussed the plan of care as well as the acceptance of the patient for transfer to [facility]. We are currently awaiting for transport of the patient. 07/06/23 at 20:50--Norbert the ER charge nurse advised that the patient was requesting her home medications. I did discuss the medications that the patient takes and will provide her evening doses while in the emergency department. We are currently awaiting transport. 07/07/23 at 06:00--I have discussed the patient's case with the on-coming physician <Dr. Marcano> and they have assumed care of the patient. Pending transport. Patient transferred to outside facility via EMS. Medical Records I reviewed the patient's medical records. Lab Data I reviewed the patient's lab results. 07/06/23 09:27 07/06/23 09:27 Laboratory Results WBC 7.84 10^3/uL (3.29-11.43) 07/06/23 09:27 RBC 4.19 10^6/uL (3.85-5.65) 07/06/23: Hgb 12.70 g/dL (11.27-16.99) 07/06/23: Hct 38.2 % (36-47) 07/06/23 MCV 91.2 fl (85-98) 07/06/23 MCH 30.3 pg (27-33) 07/06/23 MCHC 33.2 g/dL (30-55) 07/06/23 RDW 13.3 % (12.1-15.1) 07/06/23 Plt Count 314 10^3/cmm (157-399) 07/06/23 MPV 8.7 fL (7.4-10.4) 07/06/23 Neut % (Auto) 71.0 % 07/06/23 Lymph % (Auto) 20.4 % 07/06/23 [place] % (Auto) 6.1 % 07/06/23 Eos % (Auto) 1.4 % 07/06/23 Baso % (Auto) 0.6 % 07/06/23 Neut # (Auto) 5.56 10^3/uL (1.8-7.7) 07/06/23 Lymph # (Auto) 1.6 10^3/uL (0.8-4.8) 07/06/23 [place] # (Auto) 0.5 10^3/uL (0.2-0.9) 07/06/23 Eos # (Auto) 0.1 10^3/uL (0.0-0.8) 07/06/23 Baso # (Auto) 0.1 10^3/uL (0.0-0.1) 07/06/23 Nucleated RBC % (auto) 0 % 07/06/23 Nucleated RBCs # 0.0 /100WBC 07/06/23 Sodium 133 mmol/L (136-145) L 07/06/23: Potassium 3.6 mmol/L (3.5-5.1) 07/06/23 Chloride 97 mmol/L (98-107) L 07/06/23 09:27 Carbon Dioxide 25 mmol/L (22-29) 07/06/23 09:27 Anion Gap 14.6 (5-19) 07/06/23 09: BUN 15 mg/dL (8-23) 07/06/23 09: Creatinine 0.5 mg/dL (0.5-0.9) 07/06/23 09:27 GFR Calculation Not Reportable 07/06/23 09: Glucose 137 mg/dL (65-115) H 07/06/23 09:27 Calculated Osmolality 279 mOsm/kg (285-295) L 07/06/23 09: Calcium 8.7 mg/dL (8.5-10.5) 07/06/23 09: Total Bilirubin 0.4 mg/dL (0.15-1.2) 07/06/23 09: AST 28 U/L (0-32) 07/06/23 09: ALT 59 U/L (0-33) H 07/06/23 09:27 Alkaline Phosphatase 105 U/L (35-105) 07/06/23 09:27 Total Protein 6.3 g/dL (6.6-8.7) L 07/06/23 09: Albumin 3.9 g/dL (3.5-5.2) 07/06/23 09: Globulin 2.4 g/dL (1.3-4.6) 07/06/23 09:27 Urine Color Yellow (Yellow) 07/06/23 10:47 Urine Appearance Sl hazy (CLEAR) A 07/06/23 10:47 Urine pH 5 (5-7) 07/06/23 10:47 Ur Specific [place] 1.020 (1.005-1.030) 07/06/23 10:47 Urine Protein Neg (Negative) 07/06/23 10:47 Urine Glucose (UA) Norm (Normal) 07/06/23 10:47 Urine Ketones Negative (Negative) 07/06/23 10:47 Urine Blood Neg (Negative) 07/06/23 10:47 Urine Nitrate Negative (Negative) 07/06/23 10:47 Urine Bilirubin Neg (Negative) 07/06/23 10:47 Urine Urobilinogen Norm mg/dL (Negative) 07/06/23 10:47 Ur Leukocyte Esterase Negative (Negative) 07/06/23 10:47 Urine RBC None /hpf (0-2) 07/06/23 10:47 Urine WBC 0-4 /hpf (0-5) H 07/06/23 10:47 Ur Squamous Epith Cells 10-15 /hpf (0-5) H 07/06/23 10:47 Amorphous Sediment Not Reportable 07/06/23 10:47 Urine Bacteria 2+ /hpf (NONE) H 07/06/23 10:47 Urine Mucus 2+ /hpf 07/06/23 10:47 Urine Yeast 1+ /hpf H 07/06/23 10:47 Salicylates < 0.3 mg/dL (3-10) L 07/06/23 09:27 Urine Opiates Screen Negative ng/mL (Negative) 07/06/23 10:47 Acetaminophen < 5.0 ug/mL (10-30) L 07/06/23 09:27 Ur Barbiturates Screen Negative ng/mL (Negative) 07/06/23 10:47 Ur Phencyclidine Scrn Negative ng/mL (Negative) 07/06/23 10:47 Ur Amphetamines Screen Negative ng/mL (Negative) 07/06/23 10:47 U Benzodiazepines Scrn Positive ng/mL (Negative) H 07/06/23 10:47 Urine Cocaine Screen Negative ng/mL (Negative) 07/06/23 10:47 U Marijuana (THC) Screen Negative ng/mL (Negative) 07/06/23 10:47 Ethyl Alcohol < 10 mg/dL (0-10) 07/06/23 09:27 Influenza Type A Ag Negative (Negative) 07/06/23 13:13 Influenza Type B Ag Negative (Negative) 07/06/23 13:13 RSV Antigen Negative (Negative) 07/06/23 13:13 SARS-CoV-2 Ag (Rapid) negative (Negative) 07/06/23 13:13 Discharge Plan Discharge Patient Disposition: Xfer Psychiatric Hosp Condition: Stable Referrals: Xavi Ordonez DO [Primary Care Provider] - Sign Out Sign Out Data: Patient Sign Out occurred on 07/07/23 at 06:41. Patient's care was discussed, and care was transferred from Mateo Roth MD to Madhu Marcano DO. Coding Level of Care Code ED Worm Farmer for Chg Fwd Documented by User: Mateo Roth MD 07/07/23 05:55 HPI - General Adult 2 General: Chief complaint: General Medical Stated complaint: pain all over Time Seen by Provider: 07/06/23 09:04 PFSH ED 2 PFSH: Medical History Major depressive disorder, recurrent episode, moderate Psychiatric care Chronic low back pain Panic anxiety syndrome Bipolar depression Aortic aneurysm Obesity Hyperlipidemia GERD (gastroesophageal reflux disease) Diabetes Vitamin D deficiency Hypersomnia Pulmonary embolism Neuropathy Insomnia HTN (hypertension) Hypothyroidism Chronic pain Surgical History S/P TAVR (transcatheter aortic valve replacement) History of cholecystectomy H/O lumpectomy 2000 Hx of tonsillectomy 1965 Hx of hysterectomy vaginal 1970 History of esophagogastroduodenoscopy 2018 H/O colonoscopy 2018 Family History Son Stroke X2 sons (one ) Mother Stroke Sister Hx of CABG Other CAD (coronary artery disease) Cancer Diabetes Hypertension Social History Smoking and tobacco/nicotine status: former use of tobacco/nicotine Second hand smoke exposure: No Alcohol intake: never Substance/Drug Use: never Lives independently: Yes Marital status: / Current occupational status: retired Do you think of yourself as: Straight/Heterosexual Current gender identity: Female Course 2 Vital Signs: Vital signs: Vital Signs Temperature 98.7 F 07/06/23 09:04 Pulse Rate 60 07/07/23 06:37 Respiratory Rate 16 07/07/23 08:02 Blood Pressure 145/84 07/07/23 06:37 Pulse Oximetry 97 07/07/23 06:37 Oxygen Delivery Me thod Room Air 07/06/23 18:34 [facility] - General Adult Medical Decision Making Initially had been anticipating discharge for patient was again recommend starting her on pregabalin. However as it was discussing her laboratory findings or suggestions she made several comments alluding to harming herself. She alluded specifically to nearly killing herself a week ago. When I asked more questions about the issue of self-harm she states she has thought about it often through the years. She tells me that her son suddenly her of many years in her surviving son now has pancreatic cancer. She lives at home alone. She does have difficult time getting around. She expresses frustration with dealing with her pain. She admits to having been hospitalized in the past for suicidal ideation. Given her history of suicidal ideation and multiple comments and her overall situation socially and the fact that she recently stopped her medications which seem to have worsened her suicidal thoughts. She was on 300 trazodone which is pretty significant dose. Restarting it at the previous dose I do not think is a good option for her. Concerned about other options she might use for chronic pain as there likely to worsen depression or suicidal thoughts (gabapentin or pregabalin). Will place her on a 96-hour hold I do think she needs to have an evaluation for her depression and suicidal ideation. Dr. Diallo at [facility] has excepted. 07/06/23 at 18:05--I received report from the off going ER physician Dr. Marcano, we discussed the plan of care as well as the acceptance of the patient for transfer to [facility]. We are currently awaiting for transport of the patient. 07/06/23 at 20:50--Norbert the ER charge nurse advised that the patient was requesting her home medications. I did discuss the medications that the patient takes and will provide her evening doses while in the emergency department. We are currently awaiting transport. 07/07/23 at 06:00--I have discussed the patient's case with the on-coming physician <Dr. Marcano> and they have assumed care of the patient. Pending transport. Lab Data 07/06/23 09:27 07/06/23 09:27 Laboratory Results WBC 7.84 10^3/uL (3.29-11.43) 07/06/23 09: RBC 4.19 10^6/uL (3.85-5.65) 07/06/23 09:27 Hgb 12.70 g/dL (11.27-16.99) 07/06/23: Hct 38.2 % (36-47) 07/06/23: MCV 91.2 fl (85-98) 07/06/23: MCH 30.3 pg (27-33) 07/06/23 MCHC 33.2 g/dL (30-55) 07/06/23: RDW 13.3 % (12.1-15.1) 07/06/23: Plt Count 314 10^3/cmm (157-399) 07/06/23 MPV 8.7 fL (7.4-10.4) 07/06/23 Neut % (Auto) 71.0 % 07/06/23 Lymph % (Auto) 20.4 % 07/06/23 [place] % (Auto) 6.1 % 07/06/23 Eos % (Auto) 1.4 % 07/06/23 Baso % (Auto) 0.6 % 07/06/23 Neut # (Auto) 5.56 10^3/uL (1.8-7.7) 07/06/23 Lymph # (Auto) 1.6 10^3/uL (0.8-4.8) 07/06/23 [place] # (Auto) 0.5 10^3/uL (0.2-0.9) 07/06/23 Eos # (Auto) 0.1 10^3/uL (0.0-0.8) 07/06/23 Baso # (Auto) 0.1 10^3/uL (0.0-0.1) 07/06/23 Nucleated RBC % (auto) 0 % 07/06/23 Nucleated RBCs # 0.0 /100WBC 07/06/23: Sodium 133 mmol/L (136-145) L 07/06/23: Potassium 3.6 mmol/L (3.5-5.1) 07/06/23 Chloride 97 mmol/L (98-107) L 07/06/23: Carbon Dioxide 25 mmol/L (22-29) 07/06/23 09:27 Anion Gap 14.6 (5-19) 07/06/23 09: BUN 15 mg/dL (8-23) 07/06/23 09: Creatinine 0.5 mg/dL (0.5-0.9) 07/06/23 09:27 GFR Calculation Not Reportable 07/06/23 09: Glucose 137 mg/dL (65-115) H 07/06/23 09:27 Calculated Osmolality 279 mOsm/kg (285-295) L 07/06/23 09:27 Calcium 8.7 mg/dL (8.5-10.5) 07/06/23 09: Total Bilirubin 0.4 mg/dL (0.15-1.2) 07/06/23 09: AST 28 U/L (0-32) 07/06/23 09: ALT 59 U/L (0-33) H 07/06/23 09:27 Alkaline Phosphatase 105 U/L (35-105) 07/06/23 09: Total Protein 6.3 g/dL (6.6-8.7) L 07/06/23 09: Albumin 3.9 g/dL (3.5-5.2) 07/06/23 09: Globulin 2.4 g/dL (1.3-4.6) 07/06/23 09:27 Urine Color Yellow (Yellow) 07/06/23 10:47 Urine Appearance Sl hazy (CLEAR) A 07/06/23 10:47 Urine pH 5 (5-7) 07/06/23 10:47 Ur Specific [place] 1.020 (1.005-1.030) 07/06/23 10:47 Urine Protein Neg (Negative) 07/06/23 10:47 Urine Glucose (UA) Norm (Normal) 07/06/23 10:47 Urine Ketones Negative (Negative) 07/06/23 10:47 Urine Blood Neg (Negative) 07/06/23 10:47 Urine Nitrate Negative (Negative) 07/06/23 10:47 Urine Bilirubin Neg (Negative) 07/06/23 10:47 Urine Urobilinogen Norm mg/dL (Negative) 07/06/23 10:47 Ur Leukocyte Esterase Negative (Negative) 07/06/23 10:47 Urine RBC None /hpf (0-2) 07/06/23 10:47 Urine WBC 0-4 /hpf (0-5) H 07/06/23 10:47 Ur Squamous Epith Cells 10-15 /hpf (0-5) H 07/06/23 10:47 Amorphous Sediment Not Reportable 07/06/23 10:47 Urine Bacteria 2+ /hpf (NONE) H 07/06/23 10:47 Urine Mucus 2+ /hpf 07/06/23 10:47 Urine Yeast 1+ /hpf H 07/06/23 10:47 Salicylates < 0.3 mg/dL (3-10) L 07/06/23 09:27 Urine Opiates Screen Negative ng/mL (Negative) 07/06/23 10:47 Acetaminophen < 5.0 ug/mL (10-30) L 07/06/23 09:27 Ur Barbiturates Screen Negative ng/mL (Negative) 07/06/23 10:47 Ur Phencyclidine Scrn Negative ng/mL (Negative) 07/06/23 10:47 Ur Amphetamines Screen Negative ng/mL (Negative) 07/06/23 10:47 U Benzodiazepines Scrn Positive ng/mL (Negative) H 07/06/23 10:47 Urine Cocaine Screen Negative ng/mL (Negative) 07/06/23 10:47 U Marijuana (THC) Screen Negative ng/mL (Negative) 07/06/23 10:47 Ethyl Alcohol < 10 mg/dL (0-10) 07/06/23 09:27 Influenza Type A Ag Negative (Negative) 07/06/23 13:13 Influenza Type B Ag Negative (Negative) 07/06/23 13:13 RSV Antigen Negative (Negative) 07/06/23 13:13 SARS-CoV-2 Ag (Rapid) negative (Negative) 07/06/23 13:13 All radiology interpretation(s) finalized by discharge Discharge Plan Discharge Patient Disposition: Xfer Psychiatric Hosp Condition: Stable Referrals: Xavi Ordonez DO [Primary Care Provider] - Sign Out Sign Out Data: Patient Sign Out occurred on 07/07/23 at 06:41. Patient's care was discussed, and care was transferred from Mateo Roth MD to Madhu Marcano DO. Coding Level of Care Code ED Worm Farmer for Chg [place]
[2023-07-06 11:32] LABS: Acetaminophen < 5.0 ug/mL (10-30); Alcohol Level < 10 mg/dL (0-10); Salicylate < 0.3 mg/dL (3-10)
[2023-07-06 11:35] LABS: Add Urine Microscopic? YES; Bilirubin Urine Neg (Negative); Blood Urine Neg (Negative); Glucose Urine UA Norm (Normal); Ketones Urine Negative (Negative); Leukocyte Esterase Urine Negative (Negative); Nitrate Urine Negative (Negative); Protein Urine Neg (Negative); Urine Appearance SL Hazy (CLEAR); Urine Color Yellow (Yellow); Urobilinogen Urine Norm (Negative); pH Urine 5 (5-7)
[2023-07-06 11:36] LABS: Amphetamines Screen Urine Negative (Negative); Barbiturates Screen Urine Negative (Negative); Benzodiazepines Screen Urine Positive (Negative); Cocaine Screen Urine Negative (Negative); Opiate Screen Urine Negative (Negative); PCP Screen Urine Negative (Negative); THC Screen Urine Negative (Negative)
[2023-07-06 11:39] LABS: Add Urine Culture? Yes; Bacteria Urine 2+ /hpf; Mucus Urine 2+ /hpf; WBC Urine 0-4 /hpf (0-5)
[2023-07-06] MEDS: LORazepam 2 mg/mL INJ 10 mL MDV 1 MG IM (11:52)
[2023-07-06] MEDS: ziprasidone 20 mg/mL SDV 10 MG IM (11:53)
[2023-07-06] MEDS: water for injection-sterile 10 ML (11:55)
[2023-07-06 13:46] LABS: SARS Covid-2 Antigen negative (Negative)
[2023-07-06 13:53] LABS: Influenza A by IFA Negative (Negative); Influenza B by IFA Negative (Negative); RSV Transfer Patient (ED) Negative (Negative)
[2023-07-06 18:34] VITALS: BP 171/97; PULSE 71; O2SAT 96
[2023-07-06] MEDS: sotalol 80 mg Tablet PO (20:18)
[2023-07-06] MEDS: HYDROcodone-acetaminophen 10-325 mg Tablet 1 TAB PO (20:18)
[2023-07-06] MEDS: metoprolol tartrate 25 mg Tablet PO (20:18)
[2023-07-06] MEDS: apixaban 5 mg Tablet PO (20:18)
[2023-07-06] MEDS: CLONazepam 0.5 mg Tablet 1 MG PO (20:18)
--- NOTE | 2023-07-07 02:07 | PC.NURSE ---
Pt. walking in room. Pt. states that the hydrocodone does nothing for her pain .
--- NOTE | 2023-07-07 02:12 | PC.NURSE ---
Pt. is angry because she can not get more pain medication at this time. Pt. states that she feels like she has been walked all over today and that she believes everyone is talking bad about her , outside the room. Pt. states that earlier yesterday she started out in another room and when she was in that room , no one would listen to her or take care of her.
[2023-07-07 06:37] VITALS: BP 145/84; PULSE 60; RESP 16; O2SAT 97
[2023-07-07] MEDS: CLONazepam 0.5 mg Tablet 1 MG PO (07:40)
--- NOTE | 2023-07-07 07:58 | PC.NURSE ---
pt rounding pt states she needs to have her clozapam for the ride to the facility. this nurse obtained a verbal order and gave it a prescribed.
[2023-07-07 08:02] VITALS: RESP 16
== END 2023-07-07 08:08 ==
PROVIDERS: Emergency Provider Family Medicine; PCP Family Medicine
DX: R52 Pain, unspecified (principal); E78.5 Hyperlipidemia, unspecified; E11.9 Type 2 diabetes mellitus without complications; I10 Essential (primary) hypertension; Z87.891 Personal history of nicotine dependence; Z11.52 Encounter for screening for COVID-19
CPT/HCPCS: 36415; 71045; 80053; 80306; 80307; 81001; 85025; 87086; 87426; 87804; 87899; 93005; 96372; 99285; J2060; J3486

== ENCOUNTER → 2023-11-14 10:55 | Outpatient (BNVA) | payer MEDICARE, SELFPAY | PROVIDERS: PCP Family Medicine; Visit Provider Internal Medicine Cardiovascular Disease | DX: I11.0 Hypertensive heart disease with heart failure (principal); I50.30 Unspecified diastolic (congestive) heart failure; I26.99 Other pulmonary embolism without acute cor pulmonale; E78.2 Mixed hyperlipidemia; R01.1 Cardiac murmur, unspecified; Z95.2 Presence of prosthetic heart valve; E11.65 Type 2 diabetes mellitus with hyperglycemia; Z87.891 Personal history of nicotine dependence; Z79.01 Long term (current) use of anticoagulants; Z79.85 Long-term (current) use of injectable non-insulin antidiabetic drugs | CPT/HCPCS: 99213 ==

== ENCOUNTER → 2024-03-08 12:18 | Outpatient (BNVA) | payer MEDICARE, MEDICAID, SELFPAY | PROVIDERS: PCP Family Medicine; Visit Provider Family Medicine | DX: K21.9 Gastro-esophageal reflux disease without esophagitis (principal); E11.9 Type 2 diabetes mellitus without complications; I48.11 Longstanding persistent atrial fibrillation; K52.9 Noninfective gastroenteritis and colitis, unspecified; E03.9 Hypothyroidism, unspecified; I10 Essential (primary) hypertension; E55.9 Vitamin D deficiency, unspecified; E78.2 Mixed hyperlipidemia; Z79.899 Other long term (current) drug therapy; G47.00 Insomnia, unspecified | CPT/HCPCS: 80053; 80061; 82043; 82306; 83036; 83690; 84443; 85025; 87086 ==

== ENCOUNTER 2024-04-08 13:42 | Outpatient (CLI) | payer MEDICARE, SELFPAY ==
--- NOTE | 2024-04-08 13:52 | XR_ITS ---
WS: [id number] Exam: XR shoulder RT min 2V* [id number] Date/Time of Exam: 04/08/2024 2:01 PM Reason For Exam: chronic R shoulder pain Comparison 07/15/2020. No acute fracture or dislocation. Mild degenerative change of the glenohumeral joint. Mild AC joint D GLADYS. Soft tissue calcification just above the glenohumeral joint. XR/XR shoulder RT min 2V* [id number] IMPRESSION: 1. Degenerative changes as above. No fracture.
== END 2024-04-08 13:43 | disposition home or self-care (01) ==
PROVIDERS: PCP Family Medicine; Visit Provider Family Medicine
DX: M61.411 Other calcification of muscle, right shoulder (principal)
CPT/HCPCS: 73030

== ENCOUNTER → 2025-01-07 10:55 | Outpatient (BNVA) | payer MEDICARE, SELFPAY | PROVIDERS: PCP Family Medicine; Visit Provider Family Medicine | DX: E11.9 Type 2 diabetes mellitus without complications (principal) | CPT/HCPCS: 83036 ==